=== PATIENT | female | born 1950 | race Caucasian/White ===

== ENCOUNTER 2024-07-18 10:37 | Inpatient (IN) ==
--- NOTE | 2024-06-08 15:35 | PAT Medication Instructions ---
Medication Instructions Date of Service June 08, 2024 Home Medications amoxicillin 500 mg capsule 500 mg PO UD celecoxib 200 mg capsule (Celebrex) 200 mg PO QAM cyanocobalamin (vitamin B-12) 1,000 mcg tablet 1,000 mcg PO QAM desvenlafaxine succinate 50 mg tablet,extended release 24 hr 50 mg PO QAM dulaglutide 1.5 mg/0.5 mL subcutaneous pen injector (Trulicity) 3 mg subcut WK gabapentin 300 mg capsule 300 mg PO HS hydrochlorothiazide 25 mg tablet 25 mg PO QAM lisinopril 10 mg tablet 10 mg PO QAM losartan 50 mg tablet 50 mg PO QAM metformin 500 mg tablet 1,000 mg PO BID metoprolol succinate 50 mg tablet,extended release 24 hr 50 mg PO QAM tramadol 50 mg tablet 50 mg PO Q6H PRN prn Continue as directed amoxicillin 500 mg capsule 500 mg PO UD ASK your surgeon for instructions celecoxib 200 mg capsule (Celebrex) 200 mg PO QAM STOP 7 days prior to surgery (if okay with prescriber) dulaglutide 1.5 mg/0.5 mL subcutaneous pen injector (Trulicity) 3 mg subcut WK DO NOT take the morning of surgery cyanocobalamin (vitamin B-12) 1,000 mcg tablet 1,000 mcg PO QAM hydrochlorothiazide 25 mg tablet 25 mg PO QAM lisinopril 10 mg tablet 10 mg PO QAM losartan 50 mg tablet 50 mg PO QAM metformin 500 mg tablet 1,000 mg PO BID Take morning of surgery With a small sip of water, OTHERWISE NOTHING TO EAT OR DRINK AFTER MIDNIGHT: desvenlafaxine succinate 50 mg tablet,extended release 24 hr 50 mg PO QAM metoprolol succinate 50 mg tablet,extended release 24 hr 50 mg PO QAM tramadol 50 mg tablet 50 mg PO Q6H PRN prn (if needed) Take evening before surgery gabapentin 300 mg capsule 300 mg PO HS metformin 500 mg tablet 1,000 mg PO BID tramadol 50 mg tablet 50 mg PO Q6H PRN prn (if needed) Other Notes If you have any questions please call us at [phone] or [phone] or [phone] or [phone]
--- NOTE | 2024-06-24 11:37 | Anesthesiology Consultation ---
Date of Service June 24, 2024 Assessment & Plan (1) Encounter for pre-operative examination: Plan - check BSG am DOS. - patient made aware that echocardiogram will need updated per anesthesia guidelines given mild aortic stenosis on 2019 echocardiogram-denies more recent echo. She plans to discuss this with PCP at 06/27/24 appointment. Optimization form to be faxed to PCP, Dr. Winston ENAMORADO. - upcoming surgeon ordered medical clearance. Of note, patient reports onset of coughing productive of yellow sputum, hoarse voice, mild sore throat, itchy ears 06/20/24; denies fever, chills, chest discomfort, shortness of breath, myalgias, dysphagia, jaw pain, fatigue or rash. She is wearing a mask, was advised if symptoms persist within 10 days of surgery to call PAT as would then need a COVID test. She denies wanting any testing today as plans to monitor symptoms and follow-up with PCP as scheduled. - dulaglutide instructions: Patient informed at PAT visit to stop 7 days prior to surgery- voiced understanding. Patient advised to check with prescriber to see if alternative diabetic management changes recommended while holding dulaglutide- if so, patient to call back to PAT to update chart and discuss if any further preop medication instructions needed. Chart Review Chart Review: Pending: Refer to Additional Notes / Consult section and Patient seen in Pre Admission Testing Teaching & Discussion Pre-Anesthesia Teaching/Discussion Notes: Instructed NPO after midnight before surgery, except medications with 15 cc of water. Medication instructions provided according to the PAT guidelines. History Surgery Operation Date: 07/18/24 07:45 Proposed Procedures p L4-S1 Decompression and Fusion, Possible L3-L4 Decompression and Fusion, with Spinal Cord Monitoring - Vincenzo Luna, Height/Weight Height: 4 ft 10.5 in Weight: 84.4 kg Allergies Allergy/AdvReac Type Severity Reaction Status Date / Time venom-honey bee Allergy Severe swelling Verified 06/08/24 09:43 Sulfa (Sulfonamide Allergy Intermediate Rash Verified 06/08/24 09:43 Antibiotics) Medications Home Medications Medication Instructions Recorded Confirmed Last Taken amoxicillin 500 mg capsule 500 mg PO UD 06/08/24 06/08/24 Unknown celecoxib 200 mg capsule (Celebrex) 200 mg PO QAM 06/08/24 06/08/24 Unknown cyanocobalamin (vitamin B-12) 1,000 mcg PO QAM 06/08/24 06/08/24 Unknown 1,000 mcg tablet desvenlafaxine succinate 50 mg 50 mg PO QAM 06/08/24 06/08/24 Unknown tablet,extended release 24 hr dulaglutide 1.5 mg/0.5 mL 3 mg subcut WK 06/08/24 06/08/24 Unknown subcutaneous pen injector (Trulicity) gabapentin 300 mg capsule 300 mg PO HS 06/08/24 06/08/24 Unknown hydrochlorothiazide 25 mg tablet 25 mg PO QAM 06/08/24 06/08/24 Unknown lisinopril 10 mg tablet 10 mg PO QAM 06/08/24 06/08/24 Unknown losartan 50 mg tablet 50 mg PO QAM 06/08/24 06/08/24 Unknown metformin 500 mg tablet 1,000 mg PO BID 06/08/24 06/08/24 Unknown metoprolol succinate 50 mg 50 mg PO QAM 06/08/24 06/08/24 Unknown tablet,extended release 24 hr tramadol 50 mg tablet 50 mg PO Q6H PRN prn 06/08/24 06/08/24 Unknown Past Medical History Medical History (Updated 06/24/24 @ 11:44 by Bev Puri PA-C) Aortic valve stenosis mild on 2018 echo Depression Diabetes mellitus, type 2 NIDDM History of kidney stones passed on Hyperlipidemia Hypertension controlled, stable per pt Lumbar radiculopathy Mitral regurgitation mild on 2018 echo Osteoarthritis Patient denies h/o stroke, seizures, heart attack, heart failure, blood clots/DVTs or blood transfusions. Exercise / Class Metabolic Activity II 4-5 Yardwork/Stairs/Walk up hill (denies chest discomfort or shortness of breath with one flight of stairs) Past Surgical History Surgical History (Updated 06/24/24 @ 11:45 by Bev Puri PA-C) History of toe surgery great toe, right History of total knee arthroplasty right History of umbilical hernia repair x 2 Past Anesthesia History No Hx of Anesthesia Complications and No Family Hx of Anesthesia Complications History of PONV No Hx of PONV and No Hx of Motion Sickness Social History Smoking Status: Never smoker Do You Dip or Chew Tobacco: No Hx Alcohol Use: No Hx Substance Use: No substance use type: does not use Review of Systems Snoring, denies witnessed apneas. Patient denies chest pain, shortness of breath, dyspnea on exertion, reflux, dizziness, presyncope, fever, chills, wheezing, or palpitations. Physical Exam Vital Signs Vitals BP 151/82 P 69 TEMP 98.4 SP02 96% on RA RESP 18 Physical Patient resting comfortably in chair in no acute distress, alert and oriented, responding appropriately throughout visit Full cervical extension range of motion without pain TMD < 3 finger breadths Mallampati Score 3 Dentition: recent dental implant placement, several crowns and several chipped teeth, denies loose teeth, caps, or bridges Lungs: normal respiratory effort. Good air movement, clear throughout to auscultation, no adventitious breath sounds Cardiac: regular rate and rhythm, 2/6 systolic murmur noted, no gallops or rubs Carotid arteries: negative bruit bilat Lab Results Anesthesia Preop Results Results Anesthesia Widget: WBC 9.87 K/ul (4.8-10.8) 06/24/24 Hgb 13.1 g/dl (12.0-16.0) 06/24/24 Hct 37.9 % (37.0-47.0) 06/24/24 Plt 220 K/uL (130-400) 06/24/24 Na 139 mmol/L (136-145) 06/24/24 K 3.7 mmol/L (3.5-5.1) 06/24/24 Cl 104 mmol/L (98-107) 06/24/24 CO2 30 mmol/L (21-32) 06/24/24 BUN 14 mg/dl (6-23) 06/24/24 Creat 0.60 mg/dl (0.6-1.2) 06/24/24 Glucose Level 134 mg/dl (70-99(Fasting)) H 06/24/24 PT 10.9 Seconds (9.0-12.0) 06/24/24 PTT 26 Seconds (21-31) 06/24/24 INR 1.0 (0.9-1.1) 06/24/24 HA1c 7.2 % (4.5-5.6) H 06/24/24 Urine Color Yellow 06/24/24 Urine Appearance Clear (Clear) 06/24/24 Urine pH 5.5 (4.5-7.5) 06/24/24 Urine Specific [place] 1.022 (1.000-1.030) 06/24/24 Urine Protein Negative (Negative) 06/24/24 Urine Glucose (UA) Negative (Negative) 06/24/24 Urine Ketones Negative (Negative) 06/24/24 Urine Blood Negative (Negative) 06/24/24 Urine Nitrite Negative (Negative) 06/24/24 Urine Bilirubin Negative (Negative) 06/24/24 Urine Urobilinogen Negative (Negative) 06/24/24 Urine Leukocyte Esterase Negative (Negative) 06/24/24 Blood Type A Positive 06/24/24 Antibody Screen NEGATIVE 06/24/24 Testing Electrocardiogram Date: 06/24/24 NSR, rate 74 bpm Chest X-Ray Date: 06/24/24 No evidence of acute cardiopulmonary disease, communicable disease or tuberculosis. Echocardiogram Date: 04/07/19 EF 60-64% Normal LV wall motion Mildly calcified aortic valve, mild aortic valve stenosis (ALMA 1.1 cm2, mean PG 9 mmHg) Mild mitral regurgitation No evidence of pulmonary hypertension Grade I diastolic dysfunction
[2024-07-18] MEDS ORDERED: DEXAMETHASONE SOD INJ 4 MG/ML VIAL ONE (11:00)
[2024-07-18] MEDS ORDERED: ROCURONIUM BROMIDE 10 MG/ML 5 ML VIAL IV ONE (11:00)
[2024-07-18] MEDS ORDERED: GLYCOPYRROLATE 0.2 MG/ML VIAL ONE (11:00)
[2024-07-18] MEDS ORDERED: PROPOFOL IV EMULSION 10 MG/ML 20 ML VIAL IV ONE (11:00)
[2024-07-18] MEDS ORDERED: MIDAZOLAM HCL 1 MG/ML 2ML VIAL ONE (11:00)
[2024-07-18] MEDS ORDERED: LIDOCAINE 2% 2 ML VIAL/AMP(20MG/ML) INFIL ONE (11:00)
[2024-07-18] MEDS ORDERED: ONDANSETRON INJ 2 MG/ML 2 ML VIAL ONE (11:00)
[2024-07-18] MEDS ORDERED: fentaNYL citrate PF 100 MCG/2 ML VIAL ONE ×2 (11:01→13:15)
[2024-07-18] MEDS ORDERED: SUGAMMADEX SODIUM 200 MG/2 ML VIAL IV ONE (11:02)
[2024-07-18] MEDS: ACETAMINOPHEN 500 MG TAB PO SCH (11:27)
[2024-07-18] MEDS: GABAPENTIN 300 MG CAP PO SCH ×2 (11:28→20:11)
[2024-07-18] MEDS: LR 15ML/HR IV SCH (11:28)
[2024-07-18] MEDS: CeleBREX 200 MG CAP PO SCH (11:28)
[2024-07-18] MEDS: LR 60ML/HR IV SCH (11:28)
--- NOTE | 2024-07-18 12:38 | History & Physical Bridge Note ---
Date of Service July 18, 2024 History & Physical Bridge Note I have examined the patient, reviewed the History & Physical and in the interval since the performance of the History & Physical I have noted the following changes of clinical significance: no changes noted
--- NOTE | 2024-07-18 12:39 | History & Physical Report ---
Date of Service July 18, 2024 Assessment & Plan (1) Lumbosacral spondylosis with radiculopathy: Plan: L4-S1 decompression and fusion possible L3-4 decompression and fusion History of Present Illness Chief Complaint: Back and bilateral leg pain Primary Care Provider: Winston Avlarado MD This is a 73-year-old female who presents for chronic persistent back and leg pain after failing course of nonoperative care is here for surgical invention. Allergies Allergy/AdvReac Type Severity Reaction Status Date / Time venom-honey bee Allergy Severe swelling Verified 07/18/24 11:09 Sulfa (Sulfonamide Allergy Intermediate Rash Verified 07/18/24 11:09 Antibiotics) Home Medications Medication Instructions Recorded Confirmed Type amoxicillin 500 mg capsule 500 mg PO UD 06/08/24 07/18/24 History celecoxib 200 mg capsule (Celebrex) 200 mg PO QAM 06/08/24 07/18/24 History cyanocobalamin (vitamin B-12) 1,000 mcg PO QAM 06/08/24 07/18/24 History 1,000 mcg tablet desvenlafaxine succinate 50 mg 50 mg PO QAM 06/08/24 07/18/24 History tablet,extended release 24 hr dulaglutide 1.5 mg/0.5 mL 3 mg subcut WK 06/08/24 07/18/24 History subcutaneous pen injector (Trulicity) gabapentin 300 mg capsule 300 mg PO HS 06/08/24 07/18/24 History hydrochlorothiazide 25 mg tablet 25 mg PO QAM 06/08/24 07/18/24 History lisinopril 10 mg tablet 10 mg PO QAM 06/08/24 07/18/24 History losartan 50 mg tablet 50 mg PO QAM 06/08/24 07/18/24 History metformin 500 mg tablet 1,000 mg PO BID 06/08/24 07/18/24 History metoprolol succinate 50 mg 50 mg PO QAM 06/08/24 07/18/24 History tablet,extended release 24 hr tramadol 50 mg tablet 50 mg PO Q6H PRN prn 06/08/24 07/18/24 History Past Med/Surg History Problem List (Updated 07/18/24 @ 12:38 by Vincenzo Luna DO) Lumbosacral spondylosis with radiculopathy Encounter for pre-operative examination Medical History (Updated 07/18/24 @ 12:38 by Vincenzo Luna, DO) Mitral regurgitation mild on 2019 echo Aortic valve stenosis mild on 2019 echo Lumbar radiculopathy Osteoarthritis History of kidney stones passed on own-2013 Diabetes mellitus, type 2 NIDDM Depression Hyperlipidemia Hypertension controlled, stable per pt Surgical History History of toe surgery great toe, right History of total knee arthroplasty right History of umbilical hernia repair x 2 Social History Smoking Status: Never smoker Second Hand Exposure: No; Do You Dip or Chew Tobacco: No; Tobacco Cessation Education Requested by Patient: No Hx Alcohol Use: No Hx Substance Use: No Preferred Language: Serbian Director Of Managed Care Required: No Beliefs That Will Affect Care: None Current Living Situation: Spouse Other Information That Helps Us Care for You: No Feels Safe at Home: Yes Safety Concerns: Feels Safe At This Time Assistive Devices: Cane and Glasses Physical Exam Physical Exam: Patient is alert and oriented Heart regular in rhythm Lungs clear Results & Data Results & Data Vital Signs (Past 12 Hours) Vital Signs Temp Pulse Resp BP Pulse Ox O2 Del Method 07/18/24 11:13 36.6 C 71 20 167/88 H 98 Room Air
[2024-07-18] MEDS: ceFAZolin 2000MG 2,000 MG/15 ML SYR IV SCH ×2 (12:56→20:12)
[2024-07-18] MEDS: BUPIVACAINE/EPINEPHRINE 0.5% MPF 1:200,000 30 ML VIAL ONE (13:21)
[2024-07-18] MEDS: ceFAZolin 330 MG/ML 1 GM VIAL ONE (13:21)
--- OUTSIDE RECORDS SUMMARY | 2024-07-18 14:12 | External Medical Summary | Summary of Care ---
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 EKG and urine collected at [facility]. Encounter Details Date Type Department [facility] Description 06/27/2024 10:20 AM EST Office Visit [address] [phone] Lashanda Last PA-C [address] [place] [phone] Pre-op examination*; Lumbar back pain; Acute maxillary sinusitis, recurrence not specified Allergies Active Allergy Reactions Criticality Noted Date Comments Bee Venom Other (Please comment) 01/10/2014 Localized reaction-large edematous site with one week to recover Sulfa Antibiotics Rash 01/27/2001 documented as of this encounter (statuses as of 07/01/2024) Medications hydrOXYzine HCl 25 MG tabletIndication s:Anxiety Take 1 Tab by mouth every 6 hours as needed for Anxiety. 40 Tab 6 0 Active Additional Information Patient not taking.Reported on 06/27/2024 Ventolin HFA 108 (90 Base) MCG/ACT Inhalation Aerosol SolutionIndicati ons:Productive cough Inhale by mouth 2 Puffs every 4 hours as needed for Cough, Shortness of Breath or Wheezing. 18 g 5 2 Active Additional Information Patient not taking.Reported on 12/25/2023 Spacer/Aero-Hold ing Chambers Device Use with inhaler. 1 Each 2 Active Additional Information Patient not taking.Reported on 06/27/2024 SUMAtriptan Succinate 6 MG/0.5ML Subcutaneous Solution Auto-injector (Imitrex)Indicat ions:Migraine with aura and without status migrainosus, not intractable GIVE ONE INJECTION AT ONSET OF MIGRAINE. MAY REPEAT IN TWO HOURS INFECTION NEEDED, MAX OF TWO INJECTIONS PER DAY] 0.5 mL 5 3 Active Additional Information Patient not taking.Reported on 06/27/2024 metFORMIN HCl 500 MG Oral Tablet (Glucophage)Deisi cations:Type 2 diabetes mellitus with hyperglycemia, without long-term current use of insulin (HCC) Take 2 Tablets by mouth 2 times a day with morning and evening meals. 360 Tablet 3 3 Active valACYclovir HCl 1 GM Oral Tablet (Valtrex)Indicat ions:H/O cold sores Take 2 Tablets by mouth in the morning and 2 Tablets before bedtime. for cold sores. 4 Tablet 11 3 Active Gabapentin 300 MG Oral Capsule (Neurontin)Indic ations:Meralgia paraesthetica, left Take 1 Capsule by mouth in the morning and 1 Capsule before bedtime. 60 Capsule 5 09/23/2023 11:59 AM EDT 4 Active Trulicity 3 MG/0.5ML Subcutaneous Solution Pen-injector (Dulaglutide) Inject 3 mg under the skin once a week. 6 mL 3 4 Active Nystatin 387305 UNIT/GM External CreamIndications :Intertrigo Apply topically to affected area 2 times a day. To affacted area for two weeks. 30 g 2 10/20/2023 11:05 AM EDT 4 Active Vitamin B-12 1000 MCG Oral Tablet (Cyanocobalamin) Indications:Type 2 diabetes mellitus without complication, without long-term current use of insulin ([facility]) TAKE 1 TABLET BY MOUTH ONCE DAILY IN THE MORNING 100 Tablet 3 4 Active Metoprolol Succinate ER 50 MG Oral Tablet Extended Release 24 Hour (toPROL XL)Indications:E levated blood pressure, situational TAKE ONE TABLET BY MOUTH ONCE DAILY 90 Tablet 3 4 Active hydroCHLOROthiaz valentina 25 MG Oral Tablet (Hydrodiuril)Ind ications:HTN, goal below 140/90 TAKE 1 TABLET BY MOUTH ONCE DAILY FOR HIGH BLOOD PRESSURE AND FLUID 90 Tablet 3 4 Active Losartan Potassium 50 MG Oral Tablet (Cozaar)Indicati ons:HTN, goal below 140/90 TAKE 1 TABLET BY MOUTH ONCE DAILY IN THE MORNING 90 Tablet 3 4 Active Desvenlafaxine Succinate ER 50 MG Oral Tablet Extended Release 24 Hour (Pristiq)Indicat ions:Depression with anxiety TAKE ONE TABLET BY MOUTH ONCE DAILY 90 Tablet 3 4 Active Atorvastatin Calcium 20 MG Oral Tablet (Lipitor) TAKE ONE TABLET BY MOUTH ONCE DAILY 90 Tablet 1 4 Active Celecoxib 200 MG Oral Capsule (CeleBREX)Indica tions:Meralgia paraesthetica, left TAKE 1 CAPSULE BY MOUTH ONCE DAILY IN THE MORNING FOR PAIN 30 Capsule 3 4 Active Cyclobenzaprine HCl 5 MG Oral Tablet (Flexeril) Take 1 Tablet by mouth in the morning and 1 Tablet at noon and 1 Tablet before bedtime. 30 Tablet 4 Active FreeStyle Briseyda 3 Plus SensorIndication s:Type 2 diabetes mellitus with hyperglycemia, without long-term current use of insulin ([facility]) Use to monitor blood sugar daily DX E11.9 6 Each 3 4 Active Amoxicillin-Pot Clavulanate 875-125 MG Oral Tablet (Augmentin)Indic ations:Acute maxillary sinusitis, recurrence not specified Take 1 Tablet by mouth in the morning and 1 Tablet before bedtime. Do all this for 10 days. 20 Tablet 4 07/07/19 25 Active documented as of this encounter (statuses as of 07/01/2024) Active Problems Problem Noted Date Diagnosed Date H/O cold sores 04/21/2023 Mild aortic stenosis 02/11/2023 Female stress incontinence 08/13/2022 Drug-induced parkinsonism 10/03/2021 Aortic valve sclerosis 08/21/2021 Type 2 diabetes mellitus wit h hyperglycemia, without long-term current use of insulin 02/14/2021 Dyslipidemia, goal LDL below 70 02/14/2021 Urge incontinence of urine 02/14/2021 Neurofibromatosis 08/20/2020 HTN, goal below 140/90 08/18/2019 GENERAL OSTEOARTHROSIS 09/30/2002 CLASSICAL MIGRAINE WITHOU MENTION OF INTRACTABLE MIGRAINE 01/27/2001 documented as of this encounter (statuses as of 07/01/2024) Resolved Problems Problem Noted Date Diagnosed Date Resolved Date Parkinson's disease 08/13/2022 08/13/19 Ulcer of right second toe, l imited to breakdown of skin 01/20/2022 08/13/2022 Morbid obesity due to excess calories 08/20/2020 08/13/2022 Encounter for examination fo r normal comparison and control in clinical research program 07/10/2017 01/30/2020 Overview (10/15/2020): DO NOT DELETE [facility] DETECT Study: Project # [id number], Network Analyst: Montrell Jones, PhD. SUMMARY: Goal: Establish test characteristics (sensitivity, specificity, PPV, NPV) of a circulating tumor DNA (ctDNA)-based test for cancer. Hypothesis: Circulating tumor DNA (ctDNA) and elevated protein biomarkers (together, the marker panel) can be detected in asymptomatic individuals with early cancer. Specific Aim 1: Determine the prevalence of a positive marker panel test in a prospective clinical cohort of 10,000 asymptomatic women ages 65 to 75 years. Specific Aim 2: Determine the sensitivity, specificity, positive predictive value (PPV) and negative predictive value (NPV) of a marker panel test to identify histologically proven cancers that develop within 5-years of the marker panel evaluation. CONTACTS: During normal business hours, contact study staff at ; after hours Network Analyst via the [facility] soda fountain operator . Please contact study team before resolving/deleting from patients problem list. Study phone number: [phone]. Diagnosis changed due to Research Module. Go to Snapshot for study details. Encounter for examination fo r normal comparison and control in clinical research program 07/10/2017 02/27/2022 Overview (10/15/2020): DO NOT DELETE - Vargasus Rojas APRIL Study: Project # [id number], Network Analyst: Enrico Laird, MS, MPH. SUMMARY: Goal: Establish test characteristics (sensitivity, specificity, PPV, NPV) of a circulating tumor DNA (ctDNA)-based test for cancer. - Hypothesis: Circulating tumor DNA (ctDNA) and elevated protein biomarkers (together, the marker panel) can be detected in asymptomatic individuals with early cancer. - Specific Aim 1: Determine the prevalence of a positive marker panel test in a prospective clinical cohort of 10,000 asymptomatic women ages 65 to 75 years. - Specific Aim 2: Determine the sensitivity, specificity, positive predictive value (PPV) and negative predictive value (NPV) of a marker panel test to identify histologically proven cancers that develop within 5-years of the marker panel evaluation. - CONTACTS: During normal business hours, contact study staff at ; after hours Network Analyst via the [facility] soda fountain operator . - Please contact study team before resolving/deleting from patients problem list. Study phone number: [phone]. Diagnosis changed due to Research Module. Go to Snapshot for study details. Body mass index (BMI) of 40. 0 to 44.9 in adult 03/30/2017 09/14/2018 Overview: Per Obesity protocol #1 ADVANCE DIRECTIVE INFORMATION 04/02/2005 04/21/2023 Overview (04/02/2005): No, Advance Directive brochure given to patient at prior appointment. OTHER NONSPECIFIC FINDINGS O N EXAMINATION OF BLOOD 09/30/2002 04/30/2017 PREMENSTRUAL TENSION 01/27/2001 007 Gynecological examination 01/27/2001 Menopause 01/27/2001 09/14/2018 Overview (06/28/2007): Lmp 2004 documented as of this encounter (statuses as of 07/01/2024) Immunizations Name Administration Dates Next Due COVID-19 mRNA, LNP-s, No Pre serve, 2-Dose Series (Moderna) 10/01/2020,08/31/2020 Pneumococcal Conjugate Vacc, 13 Valent (Prevnar) 03/31/2019 Pneumococcal Polysaccharide PPV23 (Pneumovax) 08/20/2020 Seasonal Influenza Vac., MDV , IM, 0.5 mL (Fluzone) 03/28/2010,05/05/2007 Seasonal Influenza, PF, 6 M & above, IM , (FluLaval or Fluzone) 03/31/2019 Seasonal Influenza, Quadriva lent Hd (Fluzone Hd) 04/21/2023,08/21/2021 Seasonal Influenza, Trivalen t, Adjuvanted, 65+ YRS, PF, (Fluad) 04/12/2020 TDAP (age 10 and older)(Boostrix) 04/12/2020 TDAP, Age 7 and older, IM (Adacel) 11/08/2010(De ferred: Patient Refused) Zoster Vaccine Recombinant (Shingrix) 08/01/2020 ,04/12/2020 documented as of this encounter Social History Tobacco Use Types Packs/Day Years Used Date Smoking Tobacco: Never Smokeless Tobacco: Never Alcohol Use Standard Drinks/Week Comments Not Currently 0 (1 standard drink = 0.6 oz pur e alcohol) rarely PHQ-2 Answer Date Recorded PHQ Adult Total Score 0 02/12/2024 Hunger Vital Sign Answer Date Recorded Worried About Running Out of Food in the Last Ye ar Never true 12/12/2019 Ran Out of Food in the Last Year Never true 12/12/2019 Comments No Sex and Gender Information Value Date Recorded Sex Assigned at Female 09/16/2018 3:31 PM EDT Legal Sex Female 5:14 AM EST Gender Identity Female 09/16/2018 3:31 PM EDT Sexual Orientation Straight 09/16/2018 3: 31 PM EDT Occupation Industry Job Start Date Job End Date self employed Not on file Not on file Not on file documented as of this encounter Last Filed Vital Signs Vital Sign Reading Time Taken Comments Blood Pressure 138/78 06/27/2024 10:45 AM EST Pulse 74 06/27/2024 10:19 AM EST Temperature 36.8 C (98.2 F) 06/27/2024 10:[address] Respiratory Rate - - Oxygen Saturation 97% 06/27/2024 10:19 AM EST Inhaled Oxygen Concentration - - Weight 83.3 kg (183 lb 9.6 oz) 06/27/2024 10:19 AM EST Height - - Body Mass Index 37.08 08/29/2023 5:48 PM EST documented in this encounter Plan of Treatment Upcoming Encounters Date Type Department [facility] Team ([facility] Contact [facility] Description 07/06/2024 9:30 AM EST Office Visit Pharmacy [address] [phone] Pharmacist2, [facility] [address] [address] 08/01/2024 8:10 AM EST Laboratory [facility], [address] [phone] Have, Lab [address] [address] 08/15/2024 10:20 AM EST Office Visit Family Practice [address] [phone] Winston Messer MD [address] [place] [phone] Scheduled Procedures Name Priority Associated Diagnoses Date/Ti me COLONOSCOPY FLEXIBLE PROXIMAL DIAGNOSTIC Recall History of colon polyps Health Maintenance Due Date Last Done Comments Cologuard 09/03/1996 Fecal Occult Blood Test 09/03/1996 Sigmoidoscopy 09/03/1996 Adult Wellness Visit 09/03/2017 COVID-19 Vaccine ( season) 2024 10/01/2020, 08/31/2020 Influenza Vaccine (FLU shot) (#1) 2024 04/21/2023, 08/21/2021, 04/12/2020, Additional history exists DXA Scan 05/07/2024 05/07/2017, 04/07/2001 Albumin/Creatinine Ratio 08/14/2024 024, 07/17/2022, 08/21/2021 Mammogram 10/15/2024 10/16/2023, 04/1 01/2023, 10/14/2022, Additional history exists HbA1c 12/23/2024 06/24/2024, 08/0 01/2024, 10/20/2023, Additional history exists Depression Screening 02/11/2025 02/12/2024 Diabetic Foot Exam 02/11/2025 02/12/2024, 0 02/11/2023, 01/20/2022, Additional history exists Diabetic Eye Exam 05/16/2025 05/16/2024, , 05/14/2023, Additional history exists GFR 06/24/2025 06/24/2024, 08/0 01/2024, 08/14/2023, Additional history exists Colonoscopy 10/02/2027 10/01/2022, 04/0 10/2022, 03/16/2019, Additional history exists Colorectal Cancer Screening 10/02/2027 Lipid Panel 02/03/2029 02/04/2024, 08/0 02/2023, 07/17/2022, Additional history exists DTap/Tdap Vaccines (2 - Td or Tdap) 04/12/2030 04/12/2020, 02/16/1997 Zoster Vaccines Completed 08/01/2020, 04/12/2020 Pneumococcal Vaccine: 50+ Years Completed 08/20/2020, 03/31/2019 RETIRED - COLONOSCOPY-EVERY 5 YRS AGES 18-100 Discontinued 10/01/2022, 10/01/2022, 03/16/2019, Additional history exists HPV (Gardasil) Vaccine Aged Out No lo nger eligible based on patient's age to complete this topic Hepatitis B Vaccine Aged Out No longe r eligible based on patient's age to complete this topic MENINGOCOCCAL (MENACTRA/MENVEO) Aged Out No longer eligible based on patient's age to complete this topic documented as of this encounter Medical Devices Implanted Type Area Community Organization Worker Device Identifier Shelf Expiration Date Model / Serial / Lot Ventralex [facility] [place] With Strap Implanted:Qty: 1 on 01/25/2014 at OR [facility] N/A: Abdomen 06/28/2015 [id number] / / [id number] documented as of this encounter Visit Diagnoses Diagnosis Pre-op examination- Primary Preoperative examination, unspecified Lumbar back pain Lumbago Acute maxillary sinusitis, recurrence not specified documented in this encounter Advance Directives * Full Code (Latest Code Status on File) Date Activated Date Inactivated Comments 03/18/2021 8:36 AM 03/18/2021 1:48 PM This order r eflects the patients wishes and were consensually agreed upon. Question Answer Comments Discussion of Advance Directives occurred with: Not Discussed Does the patient have a Living Will? No Does the patient have Health Care Power of Attor aubrey? No * Full Code Date Activated Date Inactivated Comments 03/18/2021 8:29 AM 03/18/2021 8:36 AM This order r eflects the patients wishes and were consensually agreed upon. Question Answer Comments Discussion of Advance Directives occurred with: Not Discussed Does the patient have a Living Will? No Does the patient have Health Care Power of Attor aubrey? No * Full Code Date Activated Date Inactivated Comments 10/10/2010 6:42 AM 10/10/2010 4:18 PM This order r eflects the patients wishes and were consensually agreed upon. Care Teams Law Firm Consultant Relationship Specialty Start Date End Date Winston Messer MD [address] [place] [address] PCP - General Family Medicine 12/09/20 documented as of this encounter
--- OUTSIDE RECORDS SUMMARY | 2024-07-18 14:12 | External Medical Summary | Summary of Care ---
Author Name Unknown Organization [facility] Address [address] [place] [address] Phone [phone] Care Team Providers Care Manuscripts Curator Name Role Phone Winston Messer MD Primary Care P rovider Encounter Details Date Type Department Care Team ([facility] st Contact Info) Description 06/27/2024 Telephone Family Practice [address] [phone] Winston Messer MD [address] [place] [phone] Allergies Active Allergy Reactions Criticality Noted Date Comments Bee Venom Other (Please comment) 01/10/2014 Localized reaction-large edematous site with one week to recover Sulfa Antibiotics Rash 01/27/2001 documented as of this encounter (statuses as of 07/06/2024) Medications hydrOXYzine HCl 25 MG tabletIndication s:Anxiety [...] week. 6 mL 3 4 Active Nystatin 135179 UNIT/GM External CreamIndications :Intertrigo Apply topically to affected area 2 times a day. To affacted area for two weeks. 30 g 2 10/20/2023 11:05 AM EDT 4 Active Vitamin B-12 1000 MCG Oral Tablet (Cyanocobalamin) Indications:Type 2 diabetes mellitus without complication, without long-term current use of insulin (HCC) TAKE 1 TABLET BY MOUTH ONCE DAILY [...] without long-term current use of insulin (HCC) Use to monitor blood sugar daily DX E11.9 6 Each 3 4 Active Amoxicillin-Pot Clavulanate 875-125 MG Oral Tablet (Augmentin)Indic ations:Acute maxillary sinusitis, recurrence not specified Take 1 Tablet by mouth in the morning and 1 Tablet before bedtime. Do all this for 10 days. 20 Tablet 4 07/07/19 25 Active documented as of this encounter (statuses as of 07/06/2024) Active Problems Problem Noted Date Diagnosed Date [...] as of this encounter (statuses as of 07/06/2024) Resolved Problems Problem Noted Date Diagnosed Date Resolved Date Parkinson's disease 08/13/2022 08/13/19 Ulcer of right second toe, l imited to breakdown of skin 01/20/2022 08/13/2022 Morbid obesity due to excess calories 08/20/2020 08/13/2022 Encounter for examination fo r normal comparison and control in clinical research program 07/10/2017 01/30/2020 Overview (10/15/2020): DO NOT DELETE [facility] DETECT Study: Project # [id number], Vector Control Assistant: Montrell Jones, PhD. SUMMARY: Goal: Establish test [...] contact study staff at ; after hours Vector Control Assistant via the [facility] whizzer operator . Please contact study team before resolving/deleting from patients problem list. Study phone number: [phone]. Diagnosis changed due to Research Module. Go to Snapshot for study details. Encounter for examination fo r normal comparison and control in clinical research program 07/10/2017 02/27/2022 Overview (10/15/2020): DO NOT DELETE - [facility] DETECT Study: Project # [id number], Vector Control Assistant: Enrico Laird, MS, MPH. SUMMARY: Goal: Establish [...] contact study staff at ; after hours Vector Control Assistant via the [facility] whizzer operator . - Please contact study team before resolving/deleting from patients problem list. Study phone number: [phone]. Diagnosis changed due to Research Module. Go [...] as of this encounter (statuses as of 07/06/2024) Immunizations Name Administration Dates Next Due COVID-19 mRNA, LNP-s, No Pre serve, 2-Dose Series (Moderna) 10/01/2020,08/31/2020 Pneumococcal Conjugate Vacc, 13 Valent (Prevnar) 03/31/2019 Pneumococcal Polysaccharide PPV23 (Pneumovax) 08/20/2020 Seasonal Influenza Vac., MDV , IM, 0.5 mL (Fluzone) 03/28/2010,05/05/2007,04/30/2005 Seasonal Influenza, PF, 6 M & above, IM , (FluLaval or Fluzone) 03/31/2019 Seasonal Influenza, Quadriva lent Hd (Fluzone Hd) 04/21/2023,08/21/2021 Seasonal Influenza, Trivalen t, Adjuvanted, 65+ YRS, PF, (Fluad) 04/12/2020 TD - Tetanus/Diptheria (ADULT) 02/16/1997 TDAP (age 10 and older)(Boostrix) 04/12/2020 TDAP, [...] on file documented as of this encounter Miscellaneous Notes * Telephone Encounter - Catherine Kunz, FREDRICK - 06/27/2024 11:19 AM EST 07/06/24 Rec results from testing for upcoming surgery from [facility]Dr. Vincenzo Luna as requested. Sent to [facility] to be added to pts chart. Placed in Lashanda Last's "In Box" today for review. 06/27/24 Successfully faxed HARPRE[facility] to [facility] Vincenzo Luna for results from testing for upcoming surgery per provider's request (Lashanda Last). Sent to [facility]. documented in this encounter Plan of Treatment Upcoming Encounters Date Type Department Care Team ([facility] st Contact Info) Description 08/01/2024 8:10 AM EST Laboratory Laboratory Patient Service [address] [phone] [facility] [address] [place] [address] 08/15/2024 10:20 AM EST Office Visit [address] [phone] Winston Messer MD [address] [place] [address] Scheduled Procedures Name Priority Associated Diagnoses Date/Ti [...] 08/14/2024 024, 07/17/2022, 08/21/2021 Mammogram 10/15/2024 10/16/2023, 0401/2023, 10/14/2022, Additional history exists HbA1c 12/23/2024 06/24/2024, [...] this encounter Medical Devices Implanted Type Area Seasonal Tax Preparer Device Identifier Shelf Expiration Date Model / Serial / Lot Ventralex [facility] [place] With Strap Implanted:Qty: 1 on 01/25/2014 at OR [facility] N/A: Abdomen 06/28/2015 [id number] / / [id number] documented as of this encounter Advance Directives * Full Code [...] and were consensually agreed upon. Care Teams Manuscripts Curator Relationship Specialty Start Date End Date Winston Messer MD [address] [place] [phone] PCP - General Family Medicine 12/09/20 documented as of this encounter
--- OUTSIDE RECORDS SUMMARY | 2024-07-18 14:12 | External Medical Summary | Summary of Care ---
Author Name Unknown Organization [facility] Address [address] [place] [address] Phone [phone] Care Team Providers Care Log Cooker Name Role Phone Winston Messer MD Primary Care P rovider Reason for Visit * Reason Onset Date Comments Order Request 07/05/2024 Encounter Details Date Type Department Care Team ([facility] st Contact Info) Description 07/05/2024 Telephone [facility] [address] [place] [address] Lashanda Last PA-C [address] [place] [phone] Order Request Allergies Active Allergy Reactions Criticality Noted Date Comments Bee Venom Other (Please comment) 01/10/2014 Localized reaction-large edematous site with one week to recover Sulfa Antibiotics Rash 01/27/2001 documented as of this encounter (statuses as of 07/05/2024) Medications hydrOXYzine HCl 25 MG tabletIndication s:Anxiety [...] week. 6 mL 3 4 Active Nystatin 061265 UNIT/GM External CreamIndications :Intertrigo Apply topically to [...] as of this encounter (statuses as of 07/05/2024) Active Problems Problem Noted Date Diagnosed Date [...] as of this encounter (statuses as of 07/05/2024) Resolved Problems Problem Noted Date Diagnosed Date Resolved Date Parkinson's disease 08/13/2022 08/13/19 Ulcer of right second toe, l imited to breakdown of skin 01/20/2022 08/13/2022 Morbid obesity due to excess calories 08/20/2020 08/13/2022 Encounter for examination fo r normal comparison and control in clinical research program 07/10/2017 01/30/2020 Overview (10/15/2020): DO NOT DELETE [employer] DETECT Study: Project # [id number], Trailer Steerer: Montrell Jones, PhD. SUMMARY: Goal: Establish test [...] contact study staff at ; after hours Trailer Steerer via the [facility] washer operator . Please contact study team before resolving/deleting from patients problem list. Study phone number: [phone]. Diagnosis changed due to Research Module. Go to Snapshot for study details. Encounter for examination fo r normal comparison and control in clinical research program 07/10/2017 02/27/2022 Overview (10/15/2020): DO NOT DELETE - [employer] DETECT Study: Project # [id number], Trailer Steerer: Enrico Laird, MS, MPH. SUMMARY: Goal: Establish [...] contact study staff at ; after hours Trailer Steerer via the [facility] washer operator . - Please contact study team before resolving/deleting from patients problem list. Study phone number: [phone]. Diagnosis changed due to Research Module. Go [...] as of this encounter (statuses as of 07/05/2024) Immunizations Name Administration Dates Next Due COVID-19 [...] Miscellaneous Notes * Telephone Encounter - Catherine Kunz OSA - 07/05/2024 1:23 PM EST 07/05/24 Rec paperwork from [facility] requesting Medical Evaluation/Consult and and updated Echocardiogram. Paperwork placed in provider's "In box" today. Pre-op appt paperwork attached. * Telephone Encounter - Korina Esposito LPN - 07/05/2024 8:52 AM EST Beatriz from [place] [facility] is calling. States that the pt needs an updated echocardiogram prior to her procedure on 07/18/24. A note from Dr. Luna was faxed to PCP's office twice in this regard. Please advise. documented in this encounter Plan of Treatment Upcoming Encounters Date Type Department Care Team ([facility] Contact Info) Description 07/06/2024 9:30 AM EST Office Visit Pharmacy [address] [phone] Pharmacist2, [facility] [address] [address] 08/01/2024 8:10 AM EST [facility], [address] [phone] [place], [facility] [address] [place] [address] 08/15/2024 10:20 AM EST Office Visit Family [address] [phone] Winston Messer MD [address] [place] [address] [phone] Scheduled Procedures Name Priority Associated Diagnoses Date/Ti [...] this encounter Medical Devices Implanted Type Area Laundry Operator Wash Room Device Identifier Shelf Expiration Date Model / Serial / Lot Ventralex [place] With Strap Implanted:Qty: 1 on 01/25/2014 at OR [facility] N/A: Abdomen 06/28/2015 [id number] / / [id number] documented as of this encounter Advance Directives [...] and were consensually agreed upon. Care Teams Log Cooker Relationship Specialty Start Date End Date Winston Messer MD [address] [place] [address] PCP - General Family Medicine 12/09/20 documented as of this encounter
--- OUTSIDE RECORDS SUMMARY | 2024-07-18 14:12 | External Medical Summary | Summary of Care ---
Author Name Unknown Organization [facility] Address [address] [place] [address] Phone [phone] Care Team Providers Care Polygraph Examiner Name Role Phone Winston Messer MD Primary Care [facility] Reason for Referral * Precert (Diagnostic Medical) (Within 24 hrs (call dept; emergent)) - Authorized Specialty Diagnoses / Procedures Referred By Contac t Referred To Contact Cardiac Studies Diagnoses Pre-op examination Mild aortic stenosis Procedures ECHO, COMPLETE (2D), TRANS-THORACIC Sameera Van PA-C [address] [place] [phone] Phone: tel: fax: Referral ID Status Reason Start Date Expiration Date V isits Requested Visits Authorized [id number] Authorized Precert 07/05/2024 999 999 Reason for Visit * Reason Onset Date Comments Order Request 07/05/2024 Encounter Details Date Type Department Care Team ([facility] st Contact Info) Description 07/05/2024 Telephone Family Practice [facility] [address] [place] [address] Sameera Van PA-C [address] [place] [phone] Order Request Allergies Active Allergy Reactions [...] week. 6 mL 3 4 Active Nystatin 702352 UNIT/GM External CreamIndications :Intertrigo Apply topically to [...] 07/10/2017 01/30/2020 Overview (10/15/2020): DO NOT DELETE [facility] DETECT Study: Project # [id number], Bookmobile Librarian: Montrell Jones, PhD. SUMMARY: Goal: Establish test [...] contact study staff at ; after hours [employer] Librarian via the [facility] tunnel kiln operator . Please contact study team before resolving/deleting from patients problem list. Study phone number: [phone]. Diagnosis changed due to Research Module. Go to Snapshot for study details. Encounter for examination fo r normal comparison and control in clinical research program 07/10/2017 02/27/2022 Overview (10/15/2020): DO NOT DELETE - [facility] Study: Project # [id number], [employer] Librarian: Enrico Laird, MS, MPH. SUMMARY: Goal: Establish [...] contact study staff at ; after hours [employer] Librarian via the [facility] tunnel kiln operator . - Please contact study team before resolving/deleting from patients problem list. Study phone number: [phone]. Diagnosis changed due to Research Module. Go to [employer] for study details. Body mass index (BMI) [...] Age 7 and older, IM (Adacel) 11/08/2010(De ayed: Patient Refused) Zoster Vaccine Recombinant (Shingrix) 08/01/2020 [...] as of this encounter Miscellaneous Notes * Addendum Note - Sameera Van PA-C - 07/05/2024 2:37 PM ESTAddended by: SAMEERA VAN on: 07/05/2024 02:37 PM Modules accepted: Orders * Telephone Encounter - Catherine Kunz OSA - 07/05/2024 1:23 PM EST 07/06/24 Pt was called to schedule STAT Echo; no apt was available until July 15 so PAR gave pt the number [phone] to schedule the appt ROLA. was going to take care of calling to make appt dueto being in bed with the flu. PAR called pt several times and no answer to talk to pt about scheduling appt. 07/05/24 Rec paperwork from [facility] requesting Medical Evaluation/Consult and and updated Echocardiogram. Paperwork placed in provider's "In box" today. Pre-op appt paperwork attached. * Telephone Encounter - Korina Esposito LPN - 07/05/2024 8:52 AM EST Beatriz from [place] [facility] is calling. States that the pt needs an updated echocardiogram prior to her procedure on 07/18/24. A note from Dr. Luna was faxed to PCP's office twice in this regard. Please advise. documented in this encounter Plan of Treatment Upcoming Encounters Date Type Department Care Team (Late st Contact Info) Description 08/01/2024 8:10 AM EST Laboratory [facility], [place] [address] [place] [phone] [place], [facility] [address] [place] [address] 08/15/2024 10:20 AM EST Office Visit [facility] [address] [place] [phone] Winston Messer MD [address] [place] [address] Scheduled Orders Name Type Priority Associated Diagnoses Orde r Schedule ECHO, COMPLETE (2D), TRANS-THORACIC Echocardiology STAT Pre-op examination Mild aortic stenosis Expected: 07/05/2024 (Approximate), Expires: 01/02/2025 Scheduled Procedures Name Priority Associated Diagnoses Date/Ti me COLONOSCOPY FLEXIBLE PROXIMAL DIAGNOSTIC Recall History of colon polyps Health Maintenance Due Date Last Done Comments Cologuard 09/03/1996 Fecal Occult Blood Test 09/03/1996 Sigmoidoscopy 09/03/1996 Adult Wellness Visit 09/03/2017 COVID-19 Vaccine ( season) 2024 10/01/2020, 08/31/2020 Influenza Vaccine (FLU shot) (#1) 2024 04/21/2023, 08/21/2021, 04/12/2020, Additional history exists DXA Scan 05/07/2024 05/07/2017, 04/07/2001 Albumin/Creatinine Ratio 08/14/20242 024, 07/17/2022, 08/21/2021 Mammogram 10/15/2024 10/16/2023, 09/27, 10/14/2022, Additional history exists HbA1c 12/23/2024 06/24/2024, 08/01/2024, 10/20/2023, Additional history exists Depression Screening 02/11/2025 [...] this encounter Medical Devices Implanted Type Area Senior Application Software Engineer Device Identifier Shelf Expiration Date Model / Serial / Lot Ventralex St [place] With Strap Implanted:Qty: 1 on 01/25/2014 at OR [facility] N/A: Abdomen 06/28/2015 [id number] / / [id number] documented as of this encounter Visit Diagnoses Diagnosis Pre-op examination- Primary Preoperative examination, unspecified Mild aortic stenosis Aortic valve disorders documented in this encounter Advance Directives * [...] and were consensually agreed upon. Care Teams Polygraph Examiner Relationship Specialty Start Date End Date Winston Messer MD [address] [place] [address] PCP - General Family Medicine 12/09/20 documented as of this encounter
--- OUTSIDE RECORDS SUMMARY | 2024-07-18 14:12 | External Medical Summary | Summary of Care ---
Author Name Unknown Organization [facility] Address [address] [place] [address] Phone [phone] Care Team Providers Care Clerical Adjuster Name Role Phone Winston Messer MD Primary Care [facility] Reason for Referral * Precert (Diagnostic Medical) (Within 24 hrs (call dept; emergent)) - Authorized Specialty Diagnoses / Procedures Referred By Contac t Referred To Contact Cardiac Studies Diagnoses Pre-op examination Mild aortic stenosis Procedures ECHO, COMPLETE (2D), TRANS-THORACIC Sameera Van PA-C [address] [place] [phone] Phone: tel: fax: Referral ID Status Reason Start Date Expiration Date V isits Requested Visits Authorized [id number] Authorized Precert 07/05/2024 999 999 Reason for Visit * Reason Onset Date Comments Order Request 07/05/2024 Encounter Details Date Type Department Care Team ([facility] st Contact Info) Description 07/05/2024 Telephone Family Practice [facility] [address] [place] [address] Sameera Van PA-C [address] [place] [phone] Order Request Allergies Active Allergy Reactions [...] week. 6 mL 3 4 Active Nystatin 456367 UNIT/GM External CreamIndications :Intertrigo Apply topically to [...] DELETE [facility] DETECT Study: Project # [id number], Concrete Products Machine Operator: Montrell Jones, PhD. SUMMARY: Goal: Establish test [...] contact study staff at ; after hours Concrete Products Machine Operator via the [facility] magnaflux operator . Please contact study team before resolving/deleting from patients problem list. Study phone number: [phone]. Diagnosis changed due to Research Module. Go to [employer] for study details. Encounter for examination fo r normal comparison and control in clinical research program 07/10/2017 02/27/2022 Overview (10/15/2020): DO NOT DELETE - [facility] Study: Project # [id number], Concrete Products Machine Operator: Enrico Laird, MS, MPH. SUMMARY: Goal: Establish [...] contact study staff at ; after hours Concrete Products Machine Operator via the [facility] magnaflux operator . - Please contact study team before resolving/deleting from patients problem list. Study phone number: [phone]. Diagnosis changed due to Research Module. Go to [employer] for study details. Body mass index (BMI) [...] 1:23 PM EST 07/05/24 Rec paperwork from [facility] requesting Medical Evaluation/Consult and and updated Echocardiogram. Paperwork placed in provider's "In box" today. Pre-op appt paperwork attached. * Telephone Encounter - Korina Esposito LPN - 07/05/2024 8:52 AM EST Beatriz from [place] [facility] is calling. States that the pt needs an updated echocardiogram prior to her procedure on 07/18/24. A note from Dr. Luna was faxed to PCP's office twice in this regard. Please advise. documented in this encounter Plan of Treatment Upcoming Encounters Date Type Department Care Team (Late st Contact Info) Description 07/06/2024 9:30 AM EST Office Visit Pharmacy [facility], [address] [phone] Pharmacist2, [facility] [address] [address] 08/01/2024 8:10 AM EST Laboratory [facility], [address] [phone] [place], [facility] [address] [place] [address] 08/15/2024 10:20 AM EST Office Visit [facility] [address] [place] [address] Winston Messer MD [address] [place] [address] Scheduled Orders Name Type Priority Associated Diagnoses [...] 05/14/2023, Additional history exists GFR 06/24/2025 06/24/2024, /0 01/2024, 08/14/2023, Additional history exists Colonoscopy 10/02/2027 [...] this encounter Medical Devices Implanted Type Area Sales And Distribution Clerk Device Identifier Shelf Expiration Date Model / Serial / Lot Ventralex St [place] With Strap Implanted:Qty: 1 on 01/25/2014 at OR [facility] N/A: Abdomen 06/28/2015 [id number] / / [id number] documented as of this encounter Visit Diagnoses [...] and were consensually agreed upon. Care Teams Clerical Adjuster Relationship Specialty Start Date End Date Winston Messer MD [address] [place] [address] PCP - General Family Medicine 12/09/20 documented as of this encounter
--- OUTSIDE RECORDS SUMMARY | 2024-07-18 14:12 | External Medical Summary | Summary of Care ---
Author Name Unknown Organization [facility] Address [address] [place] [address] Phone [phone] Care Team Providers Care Rehab Department Manager Name Role Phone Winston Messer MD Primary Care P [facility] Encounter Details Date Type Department Care Team (Late st Contact Info) Description 06/24/2024 Result Scan Unspecified Department <No scans attached> Allergies Active Allergy Reactions Criticality Noted Date [...] week. 6 mL 3 4 Active Nystatin 947513 UNIT/GM External CreamIndications :Intertrigo Apply topically to [...] DX E11.9 6 Each 3 4 Active documented as of this encounter (statuses [...] 01/30/2020 Overview (10/15/2020): DO NOT DELETE [facility] APRIL Study: Project # [id number], Transistor Tester: Montrell Jones, PhD. SUMMARY: Goal: Establish test [...] contact study staff at ; after hours Transistor Tester via the [facility] milk bottling machine operator . Please contact study team before resolving/deleting from patients problem list. Study phone number: [phone]. Diagnosis changed due to Research Module. Go to Snapshot for study details. Encounter for examination fo r normal comparison and control in clinical research program 07/10/2017 02/27/2022 Overview (10/15/2020): DO NOT DELETE - [facility] DETECT Study: Project # [id number], Transistor Tester: Enrico Laird, MS, MPH. SUMMARY: Goal: Establish [...] contact study staff at ; after hours Transistor Tester via the [facility] milk bottling machine operator . - Please contact study team before resolving/deleting from patients problem list. Study phone number: [phone]. Diagnosis changed due to Research Module. Go [...] on file documented as of this encounter Plan of Treatment Upcoming Encounters Date Type Department Care Team ([facility] st Contact Info) Description 07/06/2024 9:30 AM EST Office Visit Pharmacy [address] [phone] Pharmacist2, [facility] [place] [address] 08/01/2024 8:10 AM EST Laboratory [facility], [address] [phone] [facility] [address] [address] 08/15/2024 10:20 AM EST Office Visit Family Practice [address] [phone] Winston Messer MD [address] [place] [phone] Scheduled Procedures Name Priority Associated Diagnoses Date/Ti [...] 08/14/2024 024, 07/17/2022, 08/21/2021 Mammogram 10/15/2024 10/16/2023, 1 01/2023, 10/14/2022, Additional history exists HbA1c 12/23/2024 [...] this encounter Medical Devices Implanted Type Area Brick Loader Device Identifier Shelf Expiration Date Model / Serial / Lot Ventralex St [place] With Strap Implanted:Qty: 1 on 01/25/2014 at OR [facility] N/A: Abdomen 06/28/2015 [id number] / / [id number] documented as of this encounter Procedures Procedure Name Priority Date/Time Associated Diagnosis Comments EKG SCANNED RESULT 06/24/2024 documented in this encounter Results * EKG SCANNED RESULT (06/24/2024) 06/24/2024 us No Physician Data Unknown EKG Final Result documented in this encounter Advance Directives * [...] and were consensually agreed upon. Care Teams Rehab Department Manager Relationship Specialty Start Date End Date Winston Messer MD [address] [place] [address] PCP - General Family Medicine 12/09/20 documented as of this encounter
--- OUTSIDE RECORDS SUMMARY | 2024-07-18 14:12 | External Medical Summary | Summary of Care ---
Author Name Unknown Organization [facility] Address [address] [place] [address] Phone [phone] Care Team Providers Care Manager Transit Name Role Phone Winston Messer MD Primary Care P rovider Encounter Details Date Type Department Care Team ([facility] st Contact Info) Description 07/01/2024 Orders Only Family Practice [facility] [address] [place] [address] Lashanda Last PA-C [address] [place] [phone] Allergies Active Allergy Reactions Criticality Noted Date [...] week. 6 mL 3 4 Active Nystatin 159440 UNIT/GM External CreamIndications :Intertrigo Apply topically to [...] (10/15/2020): DO NOT DELETE [facility] DETECT Study: Project # [id number], Supervisor Denture Department: Montrell Jones, PhD. SUMMARY: Goal: Establish test [...] contact study staff at ; after hours Supervisor Denture Department via the [facility] mangle operator garments . Please contact study team before resolving/deleting from patients problem list. Study phone number: [phone]. Diagnosis changed due to Research Module. Go to [employer] for study details. Encounter for examination fo r normal comparison and control in clinical research program 07/10/2017 02/27/2022 Overview (10/15/2020): DO NOT DELETE - [facility] DETECT Study: Project # [id number], Supervisor Denture Department: Enrico H. Laird, MS, MPH. SUMMARY: Goal: Establish test [...] contact study staff at ; after hours Supervisor Denture Department via the [facility] hospital mangle operator garments . - Please contact study team before resolving/deleting from patients problem list. Study phone number: [phone]. Diagnosis changed due to Research Module. Go [...] Upcoming Encounters Date Type Department Care Team ([facility] st Contact Info) Description 07/06/2024 9:30 AM EST Office Visit Pharmacy [address] [phone] Pharmacist2, [facility] [address] [address] 08/01/2024 8:10 AM EST Laboratory [facility], [address] [phone] [place], [facility] [address] [place] [address] 08/15/2024 10:20 AM EST Office Visit [facility] [address] [place] [phone] Winston Messer MD [address] [place] [address] Scheduled Procedures Name Priority Associated Diagnoses Date/Ti [...] Cancer Screening 10/02/2027 Lipid Panel 02/03/2029 02/04/2024, 08/02/2023, 07/17/2022, Additional history exists DTap/Tdap Vaccines (2 [...] this encounter Medical Devices Implanted Type Area Wardsperson Device Identifier Shelf Expiration Date Model / Serial / Lot Ventralex St [place] With Strap Implanted:Qty: 1 on 01/25/2014 at OR [facility] N/A: Abdomen 06/28/2015 [id number] / / [id number] documented as of this encounter Procedures Procedure Name Priority Date/Time Associated Diagnosis Comments XR CHEST 2 VIEWS Routine 06/24/2024 CHEMISTRY-OUTSIDE Routine 06/24/2024 documented in this encounter Results * (ABNORMAL) CHEMISTRY-OUTSIDE (06/24/2024) Not all results display below - see scan for full detail OUTSIDE LAB (SEE SCANNED REPORT) Comment:SCAN INCLUDES - PRE- ADMISSION LABS: BMP, HBA1C, CBCD, PT, INR, PTT, UA CREATININE 0.60 0.6 - 1.2 MG/DL OUTSIDE LAB (SEE SCANNED REPORT) EGFR 95.31 OUTSIDE LA B (SEE SCANNED REPORT) POTASSIUM 3.7 3.5 - 5.1 MMOL/L OUTSIDE LAB (SEE SCANNED REPORT) GLUCOSE 134(A) 70 - 99 MG/DL OUTSIDE LAB (SEE SCANNED REPORT) HOURS FASTING OUTSID E LAB (SEE SCANNED REPORT) TRIGLYCERIDES-OU TSIDE LAB OUTSIDE LAB (SEE SCANNED REPORT) CHOLESTEROL-OUTS [place] [facility] OUTSIDE LAB (SEE SCANNED REPORT) HDL-OUTSIDE LAB OUTS [place] [facility] (SEE SCANNED REPORT) CHOL/HDL RATIO-OUTSIDE LAB OUTSIDE LAB (SEE SCANNED REPORT) LDL (CALCULATED)-OUT SIDE LAB OUTSIDE LAB (SEE SCANNED REPORT) LDL (DIRECT MEASURE)-OUTSIDE LAB OUTSIDE LAB (SEE SCANNED REPORT) HEMOGLOBIN, Q7M-[place] LAB 7.2(A) 4.5 - 5.6 % OUTSIDE LAB (SEE SCANNED REPORT) PHOSPHORUS-OUTSI DE LAB OUTSIDE LAB (SEE SCANNED REPORT) PTH-OUTSIDE LAB OUTS [place] [facility] (SEE SCANNED REPORT) MICROALBUMIN RATIO-OUTSIDE LAB OUTSIDE LAB (SEE SCANNED REPORT) PROTEIN, UA-OUTSIDE LAB NEGATIVE NEGATIVE OUTSIDE LAB (SEE SCANNED REPORT) HGB 13.1 12.0 - 16.0 G/DL OUTSIDE LAB (SEE SCANNED REPORT) 06/24/2024 Vincenzo Luna DO LABORATORY Fin al Result OUTSIDE LAB (SEE SCANNED REPORT) * XR CHEST 2 VIEWS (06/24/2024) Anatomical Region Laterality Modality Chest Other 06/24/2024 Vincenzo Luna DO RADIOLOGY (RAD GENE RAL) Final Result documented in this encounter Advance [...] and were consensually agreed upon. Care Teams Manager Transit Relationship Specialty Start Date End Date Winston Messer MD [address] [place] [address] [phone] PCP - General Family Medicine 12/09/20 documented as of this encounter
--- OUTSIDE RECORDS SUMMARY | 2024-07-18 14:12 | External Medical Summary | Summary of Care ---
Author Name Unknown Organization [facility] Address [address] [place] [address] Phone [phone] Care Team Providers Care Tank Maker Wood Name Role Phone Winston Messer MD Primary Care [facility] Reason for Referral * Precert (Diagnostic Medical) (Within 24 hrs (call dept; emergent)) - Authorized Specialty Diagnoses / Procedures Referred By Contac t Referred To Contact Cardiac Studies Diagnoses Pre-op examination Mild aortic stenosis Procedures ECHO, COMPLETE (2D), TRANS-THORACIC Sameera Van PA-C [address] [place] [phone] Phone: tel: fax: Referral ID Status Reason Start Date Expiration Date V isits Requested Visits Authorized [id number] Authorized Precert 07/05/2024 999 999 Reason for Visit * Reason Onset Date Comments Order Request 07/05/2024 Encounter Details Date Type Department Care Team ([facility] st Contact Info) Description 07/05/2024 Telephone Family Practice [facility] [address] [place] [address] Sameera Van PA-C [address] [place] [phone] Order Request Allergies Active Allergy Reactions [...] week. 6 mL 3 4 Active Nystatin 541978 UNIT/GM External CreamIndications :Intertrigo Apply topically to [...] DELETE [facility] DETECT Study: Project # [id number], News Production Assistant: Montrell Jones, PhD. SUMMARY: Goal: Establish [...] contact study staff at ; after hours News Production Assistant via the [facility] power chisel operator . Please contact study team before resolving/deleting from patients problem list. Study phone number: [phone]. Diagnosis changed due to Research Module. Go to Snapshot for study details. Encounter for examination fo r normal comparison and control in clinical research program 07/10/2017 02/27/2022 Overview (10/15/2020): DO NOT DELETE - [facility] Study: Project # [id number], News Production Assistant: Enrico Laird, MS, MPH. SUMMARY: Goal: [...] contact study staff at ; after hours News Production Assistant via the [facility] power chisel operator . - Please contact study team before resolving/deleting from patients problem list. Study phone number: [phone]. Diagnosis changed due to Research Module. Go to [employer] for study details. Body mass index (BMI) [...] encounter Miscellaneous Notes * Telephone Encounter - Manyn Armenta - 07/06/2024 11:55 AM EST [place] ended up having a cancellation for 06/14/2025. This is before patients' surgery date. Appointment scheduled and patient aware. Sending as FYI * Addendum Note - Sameera Van PA-C - 07/05/2024 2:37 PM ESTAddended by: SAMEERA VAN on: 07/05/2024 02:37 PM Modules accepted: Orders * Telephone Encounter - Catherine Kunz OSA - 07/05/2024 1:23 PM EST 07/06/24 Pt was called to schedule STAT Echo; no apt was available until July 15 so PAR gave pt the number [phone] to schedule the appt ROLA. was going to take care of calling to make appt dueto being in bed with the flu. PAR called pt several times and no answer to talk to pt about scheduling appt. 07/05/24 Rec paperwork from [facility] requesting Medical Evaluation/Consult and and updated Echocardiogram. Paperwork placed in provider's "In box" today. Pre-op appt paperwork attached. * Telephone Encounter - Korina Esposito LPN - 07/05/2024 8:52 AM EST Beat[facility] from [facility] is calling. States that the pt needs an updated echocardiogram prior to her procedure on 07/18/24. A note from Dr. Luna was faxed to PCP's office twice in this regard. Please advise. documented in this encounter Plan of Treatment Upcoming Encounters Date Type Department Care Team (Late st Contact Info) Description 07/15/2024 12:00 PM EST Cardiac Studies Cardiac Studies, [facility] [address] [place] [address] 08/01/2024 8:10 AM EST Laboratory Laboratory Patient Service [address] [address] [place], [facility] [address] [place] [address] 08/15/2024 10:20 AM EST Office Visit [facility] [address] [place] [phone] Winston Messer MD [address] [place] [address] Scheduled Orders Name Type Priority Associated Diagnoses [...] this encounter Medical Devices Implanted Type Area Reel System Operator Device Identifier Shelf Expiration Date Model / Serial / Lot Ventralex St [place] With Strap Implanted:Qty: 1 on 01/25/2014 at OR [facility] N/A: Abdomen 06/28/2015 [id number] / / [id number] documented as of this encounter Visit Diagnoses [...] and were consensually agreed upon. Care Teams Tank Maker Wood Relationship Specialty Start Date End Date Winston Messer MD [address] [place] [address] PCP - General Family Medicine 12/09/20 documented as of this encounter
--- OUTSIDE RECORDS SUMMARY | 2024-07-18 14:12 | External Medical Summary | Summary of Care ---
Author Name Unknown Organization [facility] Address [address] [place] [address] Phone [phone] Care Team Providers Care It Business Process Architect Name Role Phone Winston Messer MD Primary Care P rovider Encounter Details Date Type Department Care Team ([facility] st Contact Info) Description 07/06/2024 Telephone Family [address] [phone] Winston Messer MD [address] [place] [address] Allergies Active Allergy Reactions Criticality Noted [...] week. 6 mL 3 4 Active Nystatin 157054 UNIT/GM External CreamIndications :Intertrigo Apply topically to [...] 01/30/2020 Overview (10/15/2020): DO NOT DELETE [facility] DETECT Study: Project # [id number], Dog License Officer Supervisor: Montrell Jones, PhD. SUMMARY: Goal: Establish test [...] contact study staff at ; after hours Dog License Officer Supervisor via the [facility] hospital pyrometer operator . Please contact study team before resolving/deleting from patients problem list. Study phone number: [phone]. Diagnosis changed due to Research Module. Go to Snapshot for study details. Encounter for examination fo r normal comparison and control in clinical research program 07/10/2017 02/27/2022 Overview (10/15/2020): DO NOT DELETE - [facility] DETECT Study: Project # [id number], Dog License Officer Supervisor: Enrico Laird, MS, MPH. SUMMARY: Goal: Establish [...] contact study staff at ; after hours Dog License Officer Supervisor via the [facility] hospital pyrometer operator . - Please contact study team before resolving/deleting from patients problem list. Study phone number: [phone]. Diagnosis changed due to Research Module. Go [...] Telephone Encounter - Catherine Kunz OSA - 07/06/2024 11:29 AM EST 07/06/24 PAR called pt and talked to since was in bed sick with the flu. PAR gave pt's the number [phone] to call and schedule a STAT Echo needed before upcoming surgery. Pt was called several times and no one answered. documented in this encounter Plan of Treatment Upcoming Encounters Date Type Department Care Team (Late st Contact Info) Description 08/01/2024 8:10 AM EST Laboratory Laboratory [facility], [place] [address] [place] [address] [facility] [address] [place] [address] 08/15/2024 10:20 AM EST Office Visit Family [facility] [address] [place] [address] Winston Messer MD [address] [place] [address] Scheduled Procedures Name Priority Associated Diagnoses Date/Ti [...] 08/14/2024 024, 07/17/2022, 08/21/2021 Mammogram 10/15/2024 10/16/2023, 09/27, 10/14/2022, Additional history exists HbA1c 12/23/2024 06/24/2024, 08/0 01/2024, 10/20/2023, Additional history exists Depression Screening 02/11/2025 02/12/2024 Diabetic Foot Exam 02/11/2025 02/12/2024, 0 02/11/2023, 01/20/2022, Additional history exists Diabetic Eye Exam 05/16/2025 05/16/2024, , 05/14/2023, Additional history exists GFR 06/24/2025 06/24/2024, 0 01/2024, 08/14/2023, Additional history exists Colonoscopy 10/02/2027 10/01/2022, 0 10/2022, 03/16/2019, Additional history exists Colorectal Cancer Screening 10/02/2027 Lipid Panel 02/03/2029 02/04/2024, 0 02/2023, 07/17/2022, Additional history exists DTap/Tdap Vaccines [...] this encounter Medical Devices Implanted Type Area Motorized Squad Commanding Officer Device Identifier Shelf Expiration Date Model / Serial / Lot Ventralex St [place] With Strap Implanted:Qty: 1 on 01/25/2014 at OR [facility] N/A: Abdomen 06/28/2015 [id number] / / [id number] documented as of this encounter Advance Directives [...] and were consensually agreed upon. Care Teams It Business Process Architect Relationship Specialty Start Date End Date Winston Messer MD [address] [place] [address] PCP - General Family Medicine 12/09/20 documented as of this encounter
--- OUTSIDE RECORDS SUMMARY | 2024-07-18 14:13 | External Medical Summary | Summary of Care ---
Author Name Unknown Organization [facility] Address [address] [place] [address] Phone [phone] Care Team Providers Care Naval Aircrewman Operator Name Role Phone Winston Messer MD Primary Care P rovider Encounter Details Date Type Department Care Team ([facility] st Contact Info) Description 06/27/2024 Telephone Family Practice [facility] [address] [place] [address] Winston Messer MD [address] [place] [address] Allergies Active Allergy Reactions Criticality Noted Date Comments Bee Venom Other (Please comment) 01/10/2014 Localized reaction-large edematous site with one week to recover Sulfa Antibiotics Rash 01/27/2001 documented as of this encounter (statuses as of 06/27/2024) Medications hydrOXYzine HCl 25 MG tabletIndication s:Anxiety [...] week. 6 mL 3 4 Active Nystatin 429902 UNIT/GM External CreamIndications :Intertrigo Apply topically to [...] DAILY 90 Tablet 3 4 Active hydroCHLOROthiaz valenitna 25 MG Oral Tablet (Hydrodiuril)Ind ications:HTN, goal [...] as of this encounter (statuses as of 06/27/2024) Active Problems Problem Noted Date Diagnosed Date [...] as of this encounter (statuses as of 06/27/2024) Resolved Problems Problem Noted Date Diagnosed Date Resolved Date Parkinson's disease 08/13/2022 08/13/19 Ulcer of right second toe, l imited to breakdown of skin 01/20/2022 08/13/2022 Morbid obesity due to excess calories 08/20/2020 08/13/2022 Encounter for examination fo r normal comparison and control in clinical research program 07/10/2017 01/30/2020 Overview (10/15/2020): DO NOT DELETE [employer] DETECT Study: Project # [id number], Handicapper Harness Racing: Montrell Jones, PhD. SUMMARY: Goal: Establish test [...] contact study staff at ; after hours Handicapper Harness Racing via the [facility] hospital packer operator automatic . Please contact study team before resolving/deleting from patients problem list. Study phone number: [phone]. Diagnosis changed due to Research Module. Go to Snapshot for study details. Encounter for examination fo r normal comparison and control in clinical research program 07/10/2017 02/27/2022 Overview (10/15/2020): DO NOT DELETE - [employer] DETECT Study: Project # [id number], Handicapper Harness Racing: Enrico Laird, MS, MPH. SUMMARY: Goal: Establish [...] contact study staff at ; after hours Handicapper Harness Racing via the [facility] hospital packer operator automatic . - Please contact study team before resolving/deleting from patients problem list. Study phone number: [phone]. Diagnosis changed due to Research Module. Go [...] as of this encounter (statuses as of 06/27/2024) Immunizations Name Administration Dates Next Due COVID-19 [...] Telephone Encounter - Catherine Kunz OSA - 06/27/2024 11:19 AM EST 06/27/24 Successfully faxed HARPREET to [facility]Dr. Vincenzo Luna for results from testing for upcoming surgery per provider's request (Lashanda Last). Sent to [facility]. documented in this encounter Plan of Treatment Upcoming Encounters Date Type Department Care Team (Latest Contact Info) Description 07/06/2024 9:30 AM EST Office Visit Pharmacy [address] [address] Pharmacist2, [address] [address] 07/11/2024 12:30 PM EST Hospital Encounter OR [facility], Operating Room [facility] [address] [place] [phone] Ben Núñez, DO [address] [place] [address] 07/11/2024 12:30 PM EST - 07/11/2024 12:55 PM EST Surgery OR [facility], Operating Room [facility] [address] [place] [phone] Ben Núñez, DO [address] [place] [phone] INJECTION SPINE LUMBAR OR SACRAL 08/01/2024 8:10 AM EST Laboratory Laboratory [facility] Center[address] [phone] [address] [address] 08/15/2024 10:20 AM EST Office Visit Family [address] [phone] Winston Messer MD [address] [place] [address] Scheduled Procedures Name Priority Associated Diagnoses Date/Ti me INJECTION SPINE LUMBAR OR SACRAL Lumbar radiculopathy 07/11/2024 12:30 PM EST COLONOSCOPY FLEXIBLE PROXIMAL DIAGNOSTIC Recall History of colon polyps Health Maintenance Due Date Last Done Comments Cologuard 09/03/1996 Fecal Occult Blood Test 09/03/1996 Sigmoidoscopy 09/03/1996 Adult Wellness Visit 09/03/2017 COVID-19 Vaccine ( season) 2024 10/01/2020, 08/31/2020 Influenza Vaccine (FLU shot) (#1) 2024 04/21/2023, 08/21/2021, 04/12/2020, Additional history exists DXA Scan 05/07/2024 05/07/2017, 04/07/2001 HbA1c 08/06/2024 02/04/2024, 09/28, 08/14/2023, Additional history exists Albumin/Creatinine Ratio 08/14/2024 024, 07/17/2022, 08/21/2021 Mammogram 10/15/2024 10/16/2023, 09/27, 10/14/2022, Additional history exists GFR 02/03/2025 02/04/2024, 07/30, 02/26/2023, Additional history exists Depression Screening 02/11/2025 02/12/2024 Diabetic Foot Exam 02/11/2025 02/12/2024, 0 02/11/2023, 01/20/2022, Additional history exists Diabetic Eye Exam 05/16/2025 05/16/2024, , 05/14/2023, Additional history exists Colonoscopy 10/02/2027 10/01/2022, 04/0 [...] this encounter Medical Devices Implanted Type Area Manager Billing Device Identifier Shelf Expiration Date Model / Serial / Lot Ventralex St [place] With Strap Implanted:Qty: 1 on 01/25/2014 at OR [facility] N/A: Abdomen 06/28/2015 [id number] / / [id number] documented as of this encounter Advance Directives [...] and were consensually agreed upon. Care Teams Naval Aircrewman Operator Relationship Specialty Start Date End Date Winston Messer MD [address] [place] [address] PCP - General Family Medicine 12/09/20 documented as of this encounter
--- OUTSIDE RECORDS SUMMARY | 2024-07-18 14:13 | External Medical Summary | Summary of Care ---
Author Name Unknown Organization [facility] Address [address] [place] [address] Phone [phone] Care Team Providers Care Industrial Relations Counselor Name Role Phone Winston Messer MD Primary Care [facility] Encounter Details Date Type Department Care Team (Late st Contact Info) Description 06/28/2024 Telephone Interventional [facility], [facility] [address] [place] [address] Ben Núñez, [address] [place] [phone] Allergies Active Allergy Reactions Criticality Noted Date Comments Bee Venom Other (Please comment) 01/10/2014 Localized reaction-large edematous site with one week to recover Sulfa Antibiotics Rash 01/27/2001 documented as of this encounter (statuses as of 06/28/2024) Medications hydrOXYzine HCl 25 MG tabletIndication s:Anxiety [...] week. 6 mL 3 4 Active Nystatin 059282 UNIT/GM External CreamIndications :Intertrigo Apply topically to [...] as of this encounter (statuses as of 06/28/2024) Active Problems Problem Noted Date Diagnosed Date [...] as of this encounter (statuses as of 06/28/2024) Resolved Problems Problem Noted Date Diagnosed Date Resolved Date Parkinson's disease 08/13/2022 08/13/19 Ulcer of right second toe, l imited to breakdown of skin 01/20/2022 08/13/2022 Morbid obesity due to excess calories 08/20/2020 08/13/2022 Encounter for examination fo r normal comparison and control in clinical research program 07/10/2017 01/30/2020 Overview (10/15/2020): DO NOT DELETE [facility] DETECT Study: Project # [id number], Adjunct Instructor In Economics: Montrell Jones, PhD. SUMMARY: Goal: Establish test [...] contact study staff at ; after hours Adjunct Instructor In Economics via the [facility] hospital lead furnace operator . Please contact study team before resolving/deleting from patients problem list. Study phone number: [phone]. Diagnosis changed due to Research Module. Go to Snapshot for study details. Encounter for examination fo r normal comparison and control in clinical research program 07/10/2017 02/27/2022 Overview (10/15/2020): DO NOT DELETE - [facility] DETECT Study: Project # [id number], Adjunct Instructor In Economics: Enrico Laird, MS, MPH. SUMMARY: Goal: Establish [...] contact study staff at ; after hours Adjunct Instructor In Economics via the [facility] hospital lead furnace operator . - Please contact study team before resolving/deleting from patients problem list. Study phone number: [phone]. Diagnosis changed due to Research Module. Go [...] as of this encounter (statuses as of 06/28/2024) Immunizations Name Administration Dates Next Due COVID-19 [...] encounter Miscellaneous Notes * Telephone Encounter - Pamela Julian LPN - 06/28/2024 11:49 AM EST Can cancel upcoming inj-patient is having spine surgery documented in this encounter Plan of Treatment Upcoming Encounters Date Type Department Care Team ([facility] Contact Info) Description 07/06/2024 9:30 AM EST Office Visit Pharmacy [address] [address] Pharmacist2, [facility] [address] [address] 08/01/2024 8:10 AM EST Laboratory Laboratory Patient Service Center, [address] [phone] [place], [facility] [address] [place] [address] 08/15/2024 10:20 AM EST Office Visit [address] [address] Winston Messer MD [address] [place] [phone] Scheduled Procedures Name Priority Associated Diagnoses Date/Ti [...] this encounter Medical Devices Implanted Type Area Air Defense Specialist Device Identifier Shelf Expiration Date Model / Serial / Lot Ventralex [facility] [place] With Strap Implanted:Qty: 1 on 01/25/2014 at OR [facility] N/A: Abdomen 06/28/2015 [id number] / / [id number] documented as of this encounter Advance Directives [...] and were consensually agreed upon. Care Teams Industrial Relations Counselor Relationship Specialty Start Date End Date Winston Messer MD [address] [place] [address] PCP - General Family Medicine 12/09/20 documented as of this encounter
[2024-07-18] MEDS: FLOSEAL HEMOSTATIC MATRIX 10ML TOP ONE (14:51)
--- NOTE | 2024-07-18 15:03 | Operative Report ---
Post Operative Report Pre & Post Diagnosis Operation Date: 07/18/24 12:15 Pre-Op Diagnosis: Lumbar Foraminal Stenosis, Lumbar Disc Disease. Lumbar spinal stenosis with neurogenic claudication Post-Op Diagnosis: Same I identified the patient and participated in the time-out.: Yes Procedure Operation Date: 07/18/24 12:15 Actual Procedures #1 lumbar decompression bilaterally facetectomies and foraminotomies L3-L4 L4-5 L5-S1. #2 posterior spinal fusion L4-L5 L5-S1. #3 placement posterior instrumentation L4-S1. #4 interbody fusion L4-L5 L5-S1. #5 placement Spira 12 x 26 mm at L4-5 and 13 x 26 mm x 2 at L5-S1. #6 placement locally harvested morselized autograft posterior gutters. #7 placement infuse collagen sponge, with Koros in the posterior lateral gutters and os design interbody space. #8 placement of versa wrap over the exposed dura. Surgeon Vincenzo Luna, DO Cream Hauler Gerardo Milian Estimated Blood Loss 500 Findings See Below The patient is 5 foot 10 weighing over 84 kg with a BMI in excess of 38. The patient brought a piece did contribute to significant technical difficulty with the proximal positioning exposure and the procedure itself. This had at least 50% increased operative time. Specimens None Indications This is a 73-year-old female presents publish diagnosis of failed course of nonoperative care is here for surgical invention. Description of Procedure Patient was met with identified informed consent obtained. Patient was then taken to the operative suite underwent intubation placed in a prone position on the Bolivar table top Josiah frame. All bony prominences well-padded eyes inspected to ensure no external precipice upon them. This point lumbar spine was prepped and draped in a sterile fashion. Sharp dissection with the assistance of Bovie cautery form down to and exposing the lamina transverse pr ocesses of L4-L5 and sacral ala bilaterally. From caudal to cephalad fashion complete laminectomy of L5 was performed including bilateral medial facetectomies and foraminotomies addressing severe spinal stenosis. This was followed by complete laminectomy at L4. Again bilateral medial facetectomies and foraminotomies performed to address severe spinal stenosis and lastly partial laminectomy of L3 with bilateral medial facetectomies address all subarticular stenosis. Pedicle screws were then placed and all for L5 and S1 levels bilaterally with assistance of fluoroscopy and appropriate size anabel placed. By way of transforaminal approach on the right a discectomy of L5-S1 was performed endplates grade 2 subcortical bleeding bone and a 13 x 26 mm spiral cage filled with os design bone graft tapped in position. Then proceeded to the left transforaminal region at L5-S1. Again discectomy performed. Endplates guarded to subcortical waiting wound. A second 13 x 26 mm Spira cage filled with os design bone graft tapped in position. Then proceeded to the L4- L5 level. By way of a transforaminal approach and a left complete discectomy was performed endplates guided to subcortical main bone and a 12 x 26 mm spiral cage filled with os designed tapped in position. The rods were then compressed locked in final position bilaterally. The transverse processes of L4-L5 and the sacral ala burred to subcortical bleeding bone. Infuse collagen sponge, with Koros and local autograft placed in the posterior lower gutters. 15 round TAE drain inserted. The incision was then closed with 1 Vicryl fascia 2-0 Vicryl subcutaneously and 4 Monocryl for final skin closure. Steri-Strips sterile dressing placed. Patient waken taken PACU stable condition. Please note spinal cord monitoring was utilized at the procedure no changes noted. Gerardo Milian was present at the entire surgery involved the patient positioning complex portion of the surgery and final skin closure. I attest to the content of the Intraoperative Record and any orders documented therein. Any exceptions are noted below.
--- NOTE | 2024-07-18 15:51 | Anesthesiology Progress Note ---
Date of Service July 18, 2024 Anesthesia Post Procedure Vital Signs Vital Signs: Temp Pulse Resp BP Pulse Ox O2 Del Method O2 Flow Rate 07/18/24 15:45 72 12 114/54 L 97 Oxymask 4 07/18/24 15:35 62 12 115/52 L 96 Oxymask 6 07/18/24 15:25 64 12 105/47 L 96 Oxymask 8 07/18/24 15:15 36.5 C 70 10 L 107/52 L 96 Oxymask 10 07/18/24 11:13 36.6 C 71 20 167/88 H 98 Room Air Pain Intensity Left Leg: Pain Intensity: 8 Transfer of Care Handoff Completed per policy Notes Mental Status: alert / awake / arousable Patient Amnestic to Procedure: Yes Nausea / Vomiting: adequately controlled Pain: adequately controlled Airway Patency, RR, SpO2: stable & adequate BP & HR: stable & adequate Hydration State: stable & adequate Anesthetic Complications: no major complications apparent and Pt Satisfied with anesthetic care
[2024-07-18] MEDS ORDERED: NALOXONE HCL 0.4 MG/1 ML VIAL/CARP IV PRN (16:37)
[2024-07-18] MEDS ORDERED: DO NOT ADMINISTER PNEUMOCOCCAL VACCINE PRN (16:37)
[2024-07-18] MEDS ORDERED: traMADol HCL 50 MG TABLET PO PRN (16:37)
[2024-07-18] MEDS ORDERED: PHARMACY GLYCEMIC MGMT CONSULT PRN (16:37)
[2024-07-18] MEDS ORDERED: hydrOXYzine HCl 25 MG TAB PO PRN (16:37)
[2024-07-18] MEDS ORDERED: ACETAMINOPHEN 500 MG TAB PO PRN (16:37)
[2024-07-18] MEDS ORDERED: DO NOT ADMINISTER FLU VACCINE PRN (16:37)
[2024-07-18] MEDS ORDERED: bisacodyL 10 MG SUPP PR PRN (16:37)
[2024-07-18] MEDS ORDERED: ONDANSETRON INJ 2 MG/ML 2 ML VIAL IV PRN (16:37)
[2024-07-18] MEDS ORDERED: METOCLOPRAMIDE HCL INJ 5 MG/ML 2 ML VIAL IV PRN (16:37)
[2024-07-18] MEDS ORDERED: FAMOTIDINE 20 MG TAB PO PRN (16:37)
[2024-07-18] MEDS ORDERED: ALUMINUM/MAGNESIUM SUSP 30 ML UDC PO PRN (16:37)
[2024-07-18] MEDS ORDERED: ONDANSETRON 4 MG OD TAB PO PRN (16:37)
[2024-07-18] MEDS ORDERED: PROMETHAZINE 12.5 MG/50.5 ML BAG IV PRN (16:37)
[2024-07-18] MEDS ORDERED: HYDROmorphone INJ 0.5 MG/0.5 ML SYR IV PRN (16:37)
[2024-07-18] MEDS ORDERED: ACETAMINOPHEN 1,000 MG/100 ML VIAL IV PRN (16:37)
[2024-07-18] MEDS ORDERED: LORazepam 0.5 MG TAB PO PRN (16:37)
[2024-07-18] MEDS ORDERED: diphenhydrAMINE Capsule 25 MG CAP PO PRN (16:37)
[2024-07-18] MEDS ORDERED: SOD PHOSPHATE/SOD BIPHOSPHATE ENEMA 132 ML BTL PR PRN (16:37)
[2024-07-18] MEDS ORDERED: LORazepam 2 MG/1 ML VIAL IV PRN (16:37)
[2024-07-18] MEDS: HYDROmorphone INJ 1 MG/ML SYRINGE IV PRN (16:45)
[2024-07-18] MEDS ORDERED: CARBOHYDRATES FOR HYPOGLYCEMIA PO PRN (17:00)
[2024-07-18] MEDS ORDERED: GLUCOSE 10 TAB/TUBE PO PRN (17:00)
[2024-07-18] MEDS ORDERED: GLUCAGON FOR INJ 1 MG VIAL SQ PRN (17:00)
[2024-07-18] MEDS ORDERED: DEXTROSE 50% 50 ML SYRINGE IV PRN (17:00)
[2024-07-18] MEDS ORDERED: GLUCOSE 40% GEL 15 GM TUBE PO PRN (17:00)
--- NOTE | 2024-07-18 17:41 | Hospitalist Consultation ---
Date of Consultation July 18, 2024 Assessment & Plan (1) Lumbosacral spondylosis with radiculopathy: s/p L3-S1 decompression and fusion today by Dr Luna. (2) Status post lumbar surgery: Post op day# 0 S/P L3-S1 decompression and fusion by Dr Luna EBL#500ml Pain management per ortho Wound management per ortho PT/OT as appropriate DVT prophylaxis per ortho Incentive spirometry Monitor H&H for acute blood loss anemia; pre-op Hgb: 13 (3) Hypertension: Hold home HCTZ, losartan and reassess tomorrow Continue metoprolol succinate (4) Diabetes mellitus, type 2: A1c: 7.2 in 05/2024 Hold home glycemic meds Basal bolus insulin per protocol. Appreciate glycemic pharmacist managing (5) Hyperlipidemia: Continue atorvastatin (6) Depression: Continue home desvenlafaxine DVT Prophylaxis SCDs Disposition per primary service Follows with Dr Scot Barahona for routine care Pt was seen and care coordinated with Dr Anna. See addendum Thank you for this consultation. We will follow the patient with you during their hospital stay. [facility] via [facility] Supervising Physician Co-Signing Physician Notes Pt seen and examined by me, care coordinated w/ JKalani Chris PA-C, pls refer to her note above for further detail. 73 yo F with hx of mild , mild MR, HTN, DM2, dyslipidemia, depression seen in medical consultation s/p L3-S1 decompression and fusion today by Dr Luna. Post op patient reports is doing well and back pain is controlled. Has Castellanos cath in place. Denies fever/chills, abd. pain N/V/ CP, shortness of breath. Overall feels well. She is awake, alert, answers appropriately. Lungs CTAB. Abdomen soft , nontender. Moves extremities. Hold losartan , HCTZ for now. Monitor BP. Monitor H&H. MD Shoshana History of Present Illness Reason for Consultation: med consult Requesting Physician: Dr. Luna Attending Physician: Vincenzo Luna DO History of Present Illness Patient is 73 year old female with PMH mild , mild MR, HTN, DM2, dyslipidemia, depression seen in medical consultation s/p L3-S1 decompression and fusion today by Dr Luna. Post op patient reports is doing well and back pain is controlled. Has Castellanos cath in place. Last BM yesterday. Denies fever/chills, N/ V/D/C, YAP, dizziness, CP, SOB, palpitations, cough, sore throat, rhinorrhea, abdominal pain, paresthesias, extremity weakness, extremity edema, rashes, urinary symptoms. Allergies Allergy/AdvReac Type Severity Reaction Status Date / Time venom-honey bee Allergy Severe swelling Verified 07/18/24 11:09 Sulfa (Sulfonamide Allergy Intermediate Rash Verified 07/18/24 11:09 Antibiotics) Home Medications Medication Instructions Recorded Confirmed Type amoxicillin 500 mg capsule 500 mg PO UD 06/08/24 07/18/24 History celecoxib 200 mg capsule (Celebrex) 200 mg PO QAM 06/08/24 07/18/24 History cyanocobalamin (vitamin B-12) 1,000 mcg PO QAM 06/08/24 07/18/24 History 1,000 mcg tablet desvenlafaxine succinate 50 mg 50 mg PO QAM 06/08/24 07/18/24 History tablet,extended release 24 hr dulaglutide 1.5 mg/0.5 mL 3 mg subcut WK 06/08/24 07/18/24 History subcutaneous pen injector (Trulicity) gabapentin 300 mg capsule 300 mg PO BID 06/08/24 07/18/24 History hydrochlorothiazide 25 mg tablet 25 mg PO QAM 06/08/24 07/18/24 History losartan 50 mg tablet 50 mg PO QAM 06/08/24 07/18/24 History metformin 500 mg tablet 1,000 mg PO BID 06/08/24 07/18/24 History metoprolol succinate 50 mg 50 mg PO QAM 06/08/24 07/18/24 History tablet,extended release 24 hr tramadol 50 mg tablet 50 mg PO Q6H PRN prn 06/08/24 07/18/24 History atorvastatin 20 mg tablet 20 mg PO DAILY 07/18/24 07/18/24 History oxycodone 5 mg tablet 5 mg PO Q6H PRN pain #30 tabs 07/19/24 Rx tramadol 50 mg tablet 50 mg PO Q6H PRN pain, moderate 07/19/24 Rx #30 tabs Patient History Medical History Mitral regurgitation mild on 2019 echo Aortic valve stenosis mild on 2019 echo Lumbar radiculopathy Osteoarthritis History of kidney stones passed on own-2013 Diabetes mellitus, type 2 NIDDM Depression Hyperlipidemia Hypertension controlled, stable per pt Surgical History History of toe surgery great toe, right History of total knee arthroplasty right History of umbilical hernia repair x 2 Social History Smoking Status: Never smoker Second Hand Exposure: No; Do You Dip or Chew Tobacco: No; Tobacco Cessation Education Requested by Patient: No Hx Alcohol Use: No Hx Substance Use: No Preferred Language: Korean Communication Ability: Effective Helpdesk Specialist Required: No Beliefs That Will Affect Care: None Current Living Situation: Spouse Other Information That Helps Us Care for You: No Feels Safe at Home: Yes Safety Concerns: Feels Safe At This Time Assistive Devices: Cane and Walker Review of Systems Review of Systems: All systems reviewed & are unremarkable except as noted in HPI & below Physical Exam Physical Exam: General: no acute distress, obese female, very pleasant Head: normocephalic, atraumatic Eyes: conjunctiva non-injected, anicteric ENT: normal inspection external ears, nose, mucous membranes moist Neck: supple, trachea midline Lungs: clear, no respiratory distress, no wheezing/rhonchi/rales CV: RRR, + murmur, no pretibial edema Abd: normal BS, soft, non-tender Back: surgical dressing in place, TAE drain in place with serosanguineous drainage Ext: no cyanosis, no calf tenderness, bilateral pedal pushes and pulls intact Neuro: A&O x 3, no focal deficits noted, normal affect Skin: warm, dry Results & Data Results & Data Vital Signs (Past 12 Hours) Vital Signs Temp Pulse Resp BP Pulse Ox O2 Del Method O2 Flow Rate 07/18/24 17:35 66 16 136/65 95 Nasal Cannula 2 07/18/24 17:02 116/66 07/18/24 17:01 Nasal Cannula 2 07/18/24 17:00 36.7 C 64 16 95/59 L 97 Nasal Cannula 2 07/18/24 16:47 36.6 C 67 16 117/72 94 Nasal Cannula 2 07/18/24 16:25 65 12 126/52 L 97 Nasal Cannula 2 07/18/24 16:10 63 12 121/56 L 98 Nasal Cannula 2 07/18/24 15:55 36.5 C 64 12 125/54 L 98 Nasal Cannula 3 07/18/24 15:45 72 12 114/54 L 97 Oxymask 4 07/18/24 15:35 62 12 115/52 L 96 Oxymask 6 07/18/24 15:25 64 12 105/47 L 96 Oxymask 8 07/18/24 15:15 36.5 C 70 10 L 107/52 L 96 Oxymask 10 07/18/24 11:13 36.6 C 71 20 167/88 H 98 Room Air Medications Administered Current Inpatient Medications Acetaminophen (Acetaminophen 500 Mg Tab) 1,000 mg PO PREOP [facility]AVENLY Stop: 07/18/24 18:00 Last Admin: 07/18/24 11:27 Dose: 1,000 mg Acetaminophen (Acetaminophen 500 Mg Tab) 1,000 mg PO Q8H PRN PRN Reason: MILD Pain Scale 1,2,3 & Pre PT Stop: 08/17/24 16:36 Al Hydrox/Mg Hydrox/Simethicone (Aluminum/Magnesium Susp 30 Ml Udc) 30 ml PO Q6H PRN PRN Reason: Dyspepsia Stop: 08/17/24 16:36 Bisacodyl (Bisacodyl 10 Mg Supp) 10 mg NH DAILY PRN PRN Reason: Constipation Stop: 08/17/24 16:36 Celecoxib (Celebrex 200 Mg Cap) 200 mg PO PREOP [facility]ENLY Stop: 07/18/24 18:00 Last Admin: 07/18/24 11:28 Dose: 200 mg Cyanocobalamin (Cyanocobalamin (B-12) 500 Mcg Tablet) 1,000 mcg PO QAM [facility] Stop: 08/18/24 08:59 Dextrose (Dextrose 50% 50 Ml Syringe) 25 - 50 ml IV UD PRN; Protocol PRN Reason: Hypoglycemia Protocol Stop: 08/17/24 16:59 Diphenhydramine HCl (Diphenhydramine Capsule 25 Mg Cap) 25 mg PO Q6H PRN PRN Reason: Allergic Rhinitis/Insomnia Stop: 08/17/24 16:36 Famotidine (Famotidine 20 Mg Tab) 20 mg PO Q12H PRN PRN Reason: Dyspepsia Stop: 08/17/24 16:36 Gabapentin (Gabapentin 300 Mg Cap) 300 mg PO PREOP [facility]EN[facility] Stop: 07/18/24 18:00 Last Admin: 07/18/24 11:28 Dose: 300 mg Gabapentin (Gabapentin 300 Mg Cap) 300 mg PO HS [facility] Stop: 08/17/24 20:59 Glucagon (Glucagon For Inj 1 Mg Vial) 1 mg SQ UD PRN; Protocol PRN Reason: Hypoglycemia Protocol Stop: 08/17/24 16:59 Glucose (Glucose 40% Gel 15 Gm Tube) 15 - 30 gm PO UD PRN; Protocol PRN Reason: Hypoglycemia Protocol Stop: 08/17/24 16:59 Glucose (Glucose 10 Tab/Tube) 4 - 8 tab PO UD PRN; Protocol PRN Reason: Hypoglycemia Protocol Stop: 08/17/24 16:59 Hydrochlorothiazide (Hydrochlorothiazide 25 Mg Tab) 25 mg PO QAM [facility] Stop: 08/18/24 08:59 Hydromorphone HCl (Hydromorphone Inj 0.5 Mg/0.5 Ml Syr) 0.5 mg IV Q3H PRN PRN Reason: MODERATE Pain (Scale 4,5,6) & Pre PT Stop: 08/01/24 16:36 Hydromorphone HCl (Hydromorphone Inj 1 Mg/Ml Syringe) 1 mg IV Q3H PRN PRN Reason: SEVERE Pain (Scale 7,8,9,10) Stop: 08/01/24 16:36 Last Admin: 07/18/24 16:45 Dose: 1 mg Hydroxyzine HCl (Hydroxyzine Hcl 25 Mg Tab) 25 mg PO Q8H PRN PRN Reason: Anxiety Stop: 08/17/24 16:36 Lactated Ringer's (Lr) 1,000 mls @ 15 mls/hr IV .Q24H [facility] Stop: 07/19/24 05:59 Last Infusion: 07/18/24 12:54 Dose: Infused Lactated Ringer's (Lr) 1,000 mls @ 60 mls/hr IV .[id number] [facility] Stop: 07/18/24 22:39 Last Admin: 07/18/24 11:28 Dose: Not Given Cefazolin Sodium (Ancef 2000mg) 2,000 mg in 15 mls @ 3.75 mls/min IV PREOP [facility]; Protocol Stop: 07/18/24 18:00 Last Admin: 07/18/24 12:56 Dose: 3.75 mls/min Acetaminophen (Ofirmev) 1,000 mg in 100 mls @ 400 mls/hr IV Q8H PRN PRN Reason: Pain Rating 1-3 & Pre PT Stop: 07/19/24 16:37 Cefazolin Sodium (Ancef 2000mg) 2,000 mg in 15 mls @ 3.75 mls/min IV Q8H [facility]; Protocol Stop: 07/19/24 05:03 Promethazine HCl (Phenergan) 12.5 mg in 50.5 mls @ 202 mls/hr IV Q6H PRN PRN Reason: Nausea And Vomiting Stop: 08/17/24 16:36 Dexamethasone 6 mg/ Syringe 1.5 mls @ 1 mls/min IV DAILY [facility] Stop: 07/21/24 09:02 Influenza Virus Vaccine Quadrival (Do Not Administer Flu Vaccine) 1 each N/A PRN PRN PRN Reason: Notification Stop: 08/17/24 16:36 Insulin Aspart (Insulin Aspart Per Unit Charge) 0 units SC ACHS [facility] Stop: 08/17/24 16:59 Insulin Aspart (Insulin Aspart Per Unit Charge) 0 units SC ONE ONE Stop: 07/19/24 02:01 Lisinopril (Lisinopril 10 Mg Tab) 10 mg PO QAM [facility] Stop: 08/18/24 08:59 Lorazepam (Lorazepam 0.5 Mg Tab) 0.5 mg PO Q8H PRN PRN Reason: Sedation/Anxiety Stop: 08/17/24 16:36 Lorazepam (Lorazepam 2 Mg/1 Ml Vial) 0.5 mg IV Q8H PRN PRN Reason: Sedation/Anxiety Stop: 08/17/24 16:36 Losartan Potassium (Losartan Potassium 50 Mg Tab) 50 mg PO QAM [facility] Stop: 08/18/24 08:59 Magnesium Hydroxide (Magnesium Hydroxide Susp 30 Ml Udc) 30 ml PO Q24H PRN PRN Reason: Constipation Stop: 08/17/24 16:36 Metoclopramide HCl (Metoclopramide Hcl Inj 5 Mg/Ml 2 Ml Vial) 10 mg IV Q6H PRN PRN Reason: Nausea &/or Vomiting Stop: 08/17/24 16:36 Metoprolol Succinate (Metoprolol Succ 50mg Ext Rel Tab) 50 mg PO QAM [facility] Stop: 08/18/24 08:59 Miscellaneous (*Pristiq*Order Awaiting Action) 1 each N/A QS [facility] Stop: 08/18/24 00:00 Miscellaneous (Carbohydrates For Hypoglycemia ) 15 - 30 gm PO UD PRN PRN Reason: Hypoglycemia Treatment Stop: 08/17/24 16:59 Miscellaneous Information (Pharmacy Glycemic Mgmt Consult) 1 each N/A UD PRN PRN Reason: Consult Stop: 08/17/24 16:36 Naloxone HCl (Naloxone Hcl 0.4 Mg/1 Ml Vial/Carp) 0.1 mg IV Q5M PRN PRN Reason: Oversedation/Resp depression Stop: 08/17/24 16:36 Ondansetron HCl (Ondansetron Inj 2 Mg/Ml 2 Ml Vial) 4 mg IV Q6H PRN PRN Reason: Nausea &/or Vomiting Stop: 08/17/24 16:36 Ondansetron HCl (Ondansetron 4 Mg Od Tab) 4 mg PO Q6H PRN PRN Reason: Nausea Stop: 08/17/24 16:36 Oxycodone HCl (Oxycodone Hcl Ir 5 Mg Tab (Immediate Release)) 5 - 10 mg PO Q4H PRN PRN Reason: Pain & Pre PT Stop: 08/01/24 16:36 Pneumococcal Polyvalent Vaccine (Do Not Administer Pneumococcal Vaccine) 1 each N/A PRN PRN PRN Reason: Notification Stop: 08/17/24 16:36 Polyethylene Glycol (Polyethylene (Miralax) 17 Gm Pack) 17 gm PO Q6 [facility] Stop: 08/18/24 05:59 Senna/Docusate Sodium (Docusate Sodium/Senna 50/8.6mg Tab) 2 tab PO HS [facility] Stop: 08/17/24 20:59 Sodium Biphosphate/Sodium Phosphate (Sod Phosphate/Sod Biphosphate Enema 132 Ml Btl) 132 ml [place] ONE PRN PRN Reason: Constipation Stop: 08/17/24 16:36 Tramadol HCl (Tramadol Hcl 50 Mg Tablet) 50 - 100 mg PO Q4H PRN PRN Reason: Moderate-Severe pain & Pre PT Stop: 08/17/24 16:36
[2024-07-18] MEDS: LANTUS PER UNIT CHARGE SC STA (17:49)
[2024-07-18] MEDS: INSULIN ASPART PER UNIT CHARGE SC SCH (17:50)
[2024-07-18] MEDS: oxyCODONE HCL IR 5 MG TAB (IMMEDIATE RELEASE) PO PRN (19:35)
[2024-07-18] MEDS: DOCUSATE SODIUM/SENNA 50/8.6MG TAB PO SCH (20:11)
[2024-07-19] MEDS: INSULIN ASPART PER UNIT CHARGE SC ONE (01:41)
[2024-07-19] MEDS: POLYETHYLENE (MIRALAX) 17 GM PACK PO SCH (05:39)
--- NOTE | 2024-07-19 07:10 | Hospitalist Progress Note ---
Date of Service July 19, 2024 Assessment & Plan (1) Lumbosacral spondylosis with radiculopathy: (2) Status post lumbar surgery: (3) Acute blood loss anemia: (4) Hypertension: Plan Jhonny Malik is a 73y/o F with PMHx significant for HLD, HTN, DMII, mild , mild MR, grade I diastolic dysfunction, urge incontinence, neurofibromatosis type 1, Lyme disease, drug-induced Parkinsonism and depression who is being seen in routine medical consultation after undergoing elective L3-S1 decompression and fusion performed by Dr. Luna on 07/18/2024. Lumbosacral Spondylosis with Radiculopathy S/P Surgery: POD #1 s/p L3-S1 decompression and fusion with Dr. Luna on 07/18/2024. Per ortho for pain control, wound care, anticoagulation and activities. Continue gabapentin. Continue incentive spirometry, PT/OT when appropriate as per ortho team. Leuk ocytosis likely reactive 2/2 pain, will monitor. Acute Blood Loss Anemia S/P Surgery: EBL: 500mL & Preoperative Hgb: 13.1 [as of 06/24/24]; Hgb now 10.1- suspect 2/2 expected surgical loss w/ additional dilutional component. No need to transfuse at this time. Continue to monitor H/H. HTN: Holding home HCTZ/losartan for now ISO hypotension postoperatively; can continue metoprolol succinate. Monitor BP closely; may need additional IVF. DMII: Home home diabetic meds, basal/bolus regimen while inpatient. Appreciate glycemic pharmacy assistance. Continue BSG checks. Other Chronic Medical Conditions: HLD - Continue statin. Depression - Continue desvenlafaxine. DVT Prophylaxis: SCDs/TEDs as per primary service. Code Status: FULL CODE PCP: Winston Alvarado MD Disposition: Admitted in Med/Surg - PT/OT evaluations pending to determine if need for SNF placement vs. outpatient rehabilitation. Thank you for this consultation. We will follow the patient with you during their hospital stay. You can reach a member of the [facility] Hospitalist Team 19/01 via [employer]. Patient seen in collaboration with Dr. Montano. Please see addendum. I spent a total of 30 minutes coordinating, documenting, and providing care for this patient excluding time spent in the performance of separately billed services and time spent by another provider/QHP. This included personally reviewing all current laboratories and imaging studies, medical reconciliation, outpatient chart review and discussion with specialists. This chart was completed in part utilizing Speech Voice Recognition Software. Grammatical errors, random word insertions, pronoun errors, and incomplete sentences are an occasional consequence of this system due to software limitations, ambient noise, and hardware issues. Any formal questions or co ncerns about the content, text, or information contained within the body of this dictation should be directly addressed to the provider for clarification. Admission and Anticipated Discharge Date Admission Date: July 18, 2024 Supervising Physician Co-Signing Physician Notes Patient seen and examined Agree with plans as detailed by Dilcia Begum PA-C I spent a total of 20 minutes coordinating, documenting and providing care for this patient excluding time spent in performance of separately billed services Subjective Patient seen and examined at bedside this morning in room W4-2. She reports good pain control this morning; mentions she feels better than she expected. Castellanos catheter was removed yesterday. She has been taking a few steps around the room with nursing staff. Will see PT/OT today. Still relatively hypotensive but otherwise VSS. Has TAE drain x [address] which is draining serosanguineous output appropriately. She denies any SOB or chest pain. Review of Systems Review of Systems: At least ten systems reviewed and negative, except as noted in the subjective section. Physical Exam Physical Exam: General: Very pleasant F, NAD, sitting up in bed, conversing appropriately. A+Ox3, euthymic affect. Respiratory: Normal respiratory effort, lungs clear to auscultation, no wheeze/rales/rhonchi. NAD. Cardiovascular: Regular rate, rhythm, + systolic murmur, normal peripheral pulses, no BLE edema. Abdomen/GI: Normal bowel sounds, soft, nondistended, nontender to palpation in all quadrants. Extremities/MSK: Able to actively move all extremities. Surgical dressing C/D/I. TAE drain x 1 intact and draining serosanguineous output. Results & Data Results & Data Vital Signs (Past 12 Hours) Vital Signs Temp Pulse Resp BP BP Pulse Ox O2 Del Method 07/19/24 03:19 36.5 C 62 18 92/54 L 92 Room Air 07/18/24 23:40 36.6 C 60 16 111/61 93 Room Air 07/18/24 21: 36.6 C 62 17 90/52 L 98 Room Air 07/18/24 19:32 92 Room Air 07/18/24 19:30 Nasal Cannula 07/18/24 19:23 36.7 C 63 16 100/63 96 Nasal Cannula O2 Flow Rate 07/19/24 03:19 07/18/24 23:40 07/18/24 21:26 07/18/24 19:32 07/18/24 19:30 2 07/18/24 19:23 1 Laboratory Results Short CBC 07/19/24 Range/Units 07:08 WBC 14.99 H (4.8-10.8) K/ul Hgb 10.1 L (12.0-16.0) g/dl Hct 29.7 L (37.0-47.0) % Plt Count 208 (130-400) K/uL BMP 07/19/24 07:08 Sodium 137 Potassium 4.3 Chloride 102 Carbon Dioxide 29 BUN 20 Creatinine 0.66 Glucose 166 H Calcium 8.7 (4) Hypertension Hypertension type: unspecified Qualified Code(s): I10 - Essential (primary) hypertension
[2024-07-19 07:59] LABS: Basophils # (auto) 0.02 K/uL (0.00-0.20); Basophils % (auto) 0.1 %; Hematocrit (blood only) 29.7 % (37.0-47.0); Hemoglobin 10.1 g/dl (12.0-16.0); Immature Granulocytes # (auto) 0.13 K/uL (0.01-0.20); Immature Granulocytes % (auto) 0.9 %; Lymphocytes # (auto) 1.13 K/uL (1.20-3.40); Lymphocytes % (auto) 7.5 %; Mean Corpuscular Hemoglobin 31.4 pg (25.0-34.0); Mean Corpuscular Volume 92.2 fL (80.0-100.0); Monocytes # (auto) 0.83 K/uL (0.11-0.59); Monocytes % (auto) 5.5 %; Neutrophils # (auto) 12.88 K/uL (1.40-6.50); Platelet Count 208 K/uL (130-400); RDW Coefficient of Variation 12.9 % (11.5-14.5); RDW Standard Deviation 42.8 fL (36.4-46.3); Red Blood Count 3.22 M/uL (4.20-5.40); White Blood Count 14.99 K/ul (4.8-10.8)
--- NOTE | 2024-07-19 08:04 | Fluoroscopy Report ---
FL lumbar spine 2-3V CLINICAL HISTORY: L4-S1 DECOMPRESSION AND FUSION COMPARISON STUDY: None FLUOROSCOPY TIME: 27 FLUOROSCOPY IMAGES: 3 EXPOSURE DOSE: 26 mGy FINDINGS: Fluoroscopy was provided for spinal fusion. IMPRESSION: Intraoperative fluoroscopy. ACT 112: Negative or not required by law. Electronically signed by: Montrell Argueta M.D. 07/19/2024 8:02 AM
[2024-07-19] MEDS: dexAMETHasone 6 MG in SYRINGE 0 ML IV SCH (08:05)
[2024-07-19] MEDS: CYANOCOBALAMIN (B-12) 500 MCG TABLET PO SCH (08:05)
[2024-07-19] MEDS: ATORVASTATIN 20 MG TAB PO SCH (08:05)
[2024-07-19] MEDS: METOPROLOL SUCC 50MG EXT REL TAB PO SCH (08:07)
[2024-07-19] MEDS: LANTUS PER UNIT CHARGE SC SCH (08:07)
[2024-07-19 08:21] LABS: BUN Creatinine Ratio 30.3 (10-20); Calcium 8.7 mg/dl (8.6-10.3); Creatinine Clr Calc Pharmacy 71.7 ml/min; Potassium 4.3 mmol/L (3.5-5.1)
[2024-07-19] MEDS ORDERED: lisinopril 10 MG TAB PO SCH (09:00)
[2024-07-19] MEDS ORDERED: hydroCHLOROthiazide 25 MG TAB PO SCH (09:00)
--- NOTE | 2024-07-19 13:41 | Orthopedic Progress Note ---
Date of Service July 19, 2024 Assessment & Plan (1) Lumbosacral spondylosis with radiculopathy: Plan: At this time continue physical therapy monitor TEA operatively discharge home next few days. Admission and Anticipated Discharge Date Admission Date: July 18, 2024 Subjective Back pain controlled leg pain improved. Physical Exam Physical Exam: Patient is in the chair at the bedside. She is comfortable. Discussed when to testing. Results & Data Vital Signs (Past 12 Hours) Vital Signs Temp Pulse Resp BP Pulse Ox O2 Del Method 07/19/24 11:07 36.7 C 62 18 132/68 92 Room Air 07/19/24 07:56 36.5 C 60 16 112/72 92 Room Air 07/19/24 03:19 36.5 C 62 18 92/54 L 92 Room Air Queries Orthopedic Spine Obesity: Yes
--- NOTE | 2024-07-19 15:04 | Pharmacy Report ---
Pharmacy Glycemic Short Note 2 - Date of Service July 19, 2024 - Glycemic Short BSG Results (Last 24 hours): 07/18/24 07/18/24 07/18/24 15:17 17:19 20:10 Glucose POC Glucose 138 H 173 H 195 H 07/19/24 07/19/24 07/19/24 01:38 07:08 07:35 Glucose 166 H POC Glucose 145 H 168 H 07/19/24 11:28 Glucose POC Glucose 186 H OUTPATIENT ANTIDIABETIC REGIMEN: * Trulicity 3mg SC QMO * metformin 1000mg BID * HbA1c 7.2% (06/24/24) ASSESSMENT: * Jhonny is a 73 YOF admitted status post spinal infusion with a history of T2DM. Pharmacy has been consulted to assist with glycemic management while inpatient. * Preoperative BSG within goal range yesterday, she was given dexamethasone 8mg IV preoperatively. Conservative Lantus at ~0.1units/kg given to cover operative steroids. She continues on dexamethasone 6mg IV QAM x3 days. Will increase to ~0.2 units/kg today since BSGs still climbed some yesterday evening. * NovoLog initiated at a weight based stress of 3, will tighten carbohydrate coverage slightly due to increased BSG yesterday evening after eating PLAN FOR INPATIENT GLYCEMIC CONTROL: * Hold outpatient oral diabetes medications * Basal insulin * Lantus 15 units SQ QAM x3 days (with IV dexamethasone) * Bolus insulin * NovoLog per scale ACHS or Q6hrs while NPO * Goal Range: Low 110 mg/dL - High 140 mg/dL * Correction Factor: 20 mg/dL/unit * Nutritional / Prandial insulin per carb ratio of 1 unit per 6 grams CHO consumed
--- NOTE | 2024-07-20 08:10 | Hospitalist Progress Note ---
Date of Service July 20, 2024 Assessment & Plan (1) Lumbosacral spondylosis with radiculopathy: (2) Status post lumbar surgery: (3) Acute blood loss anemia: (4) Hypertension: Plan Jhonny Malik is a 73y/o F with PMHx significant for HLD, HTN, DMII, mild , mild MR, grade I diastolic dysfunction, urge incontinence, neurofibromatosis type 1, Lyme disease, drug-induced Parkinsonism and depression who is being seen in routine medical consultation after undergoing elective L3-S1 decompression and fusion performed by Dr. Luna on 07/18/2024. Lumbosacral Spondylosis with Radiculopathy S/P Surgery: POD #1 s/p L3-S1 decompression and fusion with Dr. Luna on 07/18/2024. Per ortho for pain control, wound care, anticoagulation and activities. Continue gabapentin. Continue incentive spirometry, PT/OT when appropriate as per ortho team. Leuko cytosis likely reactive 2/2 pain, improving 14.99-->13.36 Has taken THREE doses of Oxy 10 mg PO over past 24 hours. Has not required any IV opioids since 07/18. Not used any Tramadol, Ativan, IV Dilaudid. Acute Blood Loss Anemia S/P Surgery: EBL: 500mL & Preoperative Hgb: 13.1 [as of 06/24/24]; Hgb now 9.2- suspect 2/2 expected surgical loss w/ additional dilutional component. No need to transfuse at this time. Continue to monitor H/H. Opioid induced constipation: taking Miralax and Senna. Need to be cautious of opioid induced constipation. Has taken THREE doses of Oxy 10 mg PO over past 24 hours. Reports (+) flatulance. HTN: Resume Losartan today 07/20 Continue to hold HCTZ and monitor for hypotension postop; continue metoprolol succinate. Monitor BP closely; continues to increase fluid PO intake. DMII: Home home diabetic meds, basal/bolus regimen while inpatient. Appreciate glycemic pharmacy assistance. Continue BSG checks. Other Chronic Medical Conditions: HLD - Continue statin. Depression - Continue desvenlafaxine. DVT Prophylaxis: SCDs/TEDs as per primary service. Code Status: FULL CODE PCP: Winston Alvarado MD Disposition: Admitted in Med/Surg - Goal to be DC home ( and daughter able to assist) tomorrow 07/21; pending ortho recommendation. Thank you for this consultation. We will follow the patient with you during their hospital stay. You can reach a member of the [facility] Hospitalist Team 19/01 via [email or web address]. I spent a total of 45 minutes coordinating, documenting, and providing care for this patient excluding time spent in the performance of separately billed services and time spent by another provider/QHP. This included personally reviewing all current laboratories and imaging studies, medical reconciliation, outpatient chart review and discussion with specialists. This chart was completed in part utilizing Speech Voice Recognition Software. Grammatical errors, random word insertions, pronoun errors, and incomplete sentences are an occasional consequence of this system due to software limitations, ambient noise, and hardware issues. Any formal questions or concerns about the content, text, or information contained within the body of this dictation should be directly addressed to the provider for clarification. Admission and Anticipated Discharge Date Admission Date: July 18, 2024 Supervising Physician Co-Signing Physician Notes delayed entry date of service noted above Attending Addendum: Case reviewed with the advanced practitioner. I have personally performed a history and physical examination on the patient. I have reviewed the advanced practitioner's documentation on the date of service referenced in note, and I agree with, and take responsibility for the plan of care. please refer to her notes for full details patient seen and examined, records reviewed by myself as well diagnoses and plan of care as per advanced practitioner's notes Capo Rizzo MD Subjective Pt sitting in her bedside chair in no apparent distress. She is quite pleasant. Denies chest pain, SOB, neuropathic pain. Tolerating diet well. No N/V/D. Has not had a BM since Monday 07/17; taking Miralax and Senna. Need to be cautious of opioid induced constipation. Review of Systems Review of Systems: At least ten systems reviewed and negative, except as noted in the subjective section. Physical Exam Physical Exam: Neuro: AAOx4, PERRLA, no aphagia, memory changes, CNII-XII grossly intact HEENT: head normocephalic, moist mucus membranes CV: S1/S2, (-) M/G/R, (-) edema, cap refill < 3 seconds TAE drain x1; minimal wilian red blood output. Resp: Lungs CTA in all pereira. On RA GI: Abdomen S/NT/ND, Ax4 bowel sounds, (-) CVA tenderness Musculoskeletal: 5/5 B/L UE strength, 5/5 B/L LE strength. No gait disturbance Skin: (-) rashes , (-) erythema. vertical lumbar surgical incision dressing C/D/I Psych: euthymic mood Results & Data Results & Data Vital Signs (Past 12 Hours) Vital Signs Temp Pulse Resp BP Pulse Ox O2 Del Method 07/19/24 22:28 36.7 C 63 18 146/67 H 96 Room Air Laboratory Results Short CBC 07/20/24 Range/Units 07:56 WBC 13.36 H (4.8-10.8) K/ul Hgb 9.2 L (12.0-16.0) g/dl Hct 27.3 L (37.0-47.0) % Plt Count 186 (130-400) K/uL BMP 07/20/24 07:56 Sodium 137 Potassium 4.2 Chloride 101 Carbon Dioxide 32 BUN 22 Creatinine 0.61 Glucose 169 H Calcium 8.9 (4) Hypertension Hypertension type: unspecified Qualified Code(s): I10 - Essential (primary) hypertension
[2024-07-20] MEDS: LOSARTAN POTASSIUM 50 MG TAB PO SCH (08:26)
[2024-07-20 08:39] LABS: Hematocrit (blood only) 27.3 % (37.0-47.0); Hemoglobin 9.2 g/dl (12.0-16.0); Mean Corpuscular Hemoglobin 31.8 pg (25.0-34.0); Mean Corpuscular Hgb Conc 33.7 g/dL (32.0-36.0); Mean Corpuscular Volume 94.5 fL (80.0-100.0); Mean Platelet Volume 10.3 fL (9.4-12.4); Platelet Count 186 K/uL (130-400); RDW Coefficient of Variation 13.2 % (11.5-14.5); RDW Standard Deviation 45.2 fL (36.4-46.3); Red Blood Count 2.89 M/uL (4.20-5.40); White Blood Count 13.36 K/ul (4.8-10.8)
[2024-07-20 09:02] LABS: BUN Creatinine Ratio 36.1 (10-20); Calcium 8.9 mg/dl (8.6-10.3); Creatinine Clr Calc Pharmacy 77.5 ml/min; Potassium 4.2 mmol/L (3.5-5.1)
--- NOTE | 2024-07-20 12:36 | Orthopedic Progress Note ---
Date of Service July 20, 2024 Assessment & Plan (1) Lumbosacral spondylosis with radiculopathy: Plan: At this time we will continue physical therapy monitor TAE output and advance her bowel regiment anticipate discharge home tomorrow. Admission and Anticipated Discharge Date Admission Date: July 18, 2024 Subjective Patient's back pain is controlled leg symptoms improved Physical Exam Physical Exam: Patient is in the chair at the bedside. She is comfortable. Distracted testing Results & Data Vital Signs (Past 12 Hours) Vital Signs Temp Pulse Resp BP Pulse Ox O2 Del Method 07/20/24 08:20 36.5 C 68 18 104/45 L 95 Room Air Queries Orthopedic Spine Obesity: Yes
[2024-07-20] MEDS: LANTUS PER UNIT CHARGE SC SCH (21:11)
--- NOTE | 2024-07-21 07:24 | Hospitalist Progress Note ---
Date of Service July 21, 2024 Assessment & Plan (1) Lumbosacral spondylosis with radiculopathy: (2) Status post lumbar surgery: (3) Acute blood loss anemia: (4) Hypertension: Plan Jhonny Malik is a 73y/o F with PMHx significant for HLD, HTN, DMII, mild , mild MR, grade I diastolic dysfunction, urge incontinence, neurofibromatosis type 1, Lyme disease, drug-induced Parkinsonism and depression who is being seen in routine medical consultation after undergoing elective L3-S1 decompression and fusion performed by Dr. Luna on 07/18/2024. Lumbosacral Spondylosis with Radiculopathy S/P Surgery: POD #1 s/p L3-S1 decompression and fusion with Dr. Luna on 07/18/2024. Per ortho for pain control, wound care, anticoagulation and activities. Continue gabapentin. Continue incentive spirometry, PT/OT when appropriate as per ortho team. Leuko cytosis likely reactive 2/2 pain, 14.99-->13.36--> 15.85 (suspect reactive post op) No signs of infection at incision site Has taken THREE doses of Oxy 10 mg PO over past 24 hours. Has not required any IV opioids since 07/18. Not used any Tramadol, Ativan, IV Dilaudid. Acute Blood Loss Anemia S/P Surgery: EBL: 500mL & Preoperative Hgb: 13.1 [as of 06/24/24]; Hgb now 9.2-->10.3- suspect 2/2 expected surgical loss w/ additional dilutional component. Opioid induced constipation: taking Miralax and Senna. Need to be cautious of opioid induced constipation. Has taken THREE doses of Oxy 10 mg PO over past 24 hours. Reports (+) flatulance; has taken MOM and Miralax; added Dulcolax Supp for today. HTN:Resumed Losarten on 07/20; BP tolerating. Was originally on lower side. Continue to hold HCTZ and ensure discussed with PCP at follow up to determine if she shouldl resume or not. continue metoprolol succinate. Monitor BP closely; continues to increase fluid PO intake. DMII: Home home diabetic meds, basal/bolus regimen while inpatient. Appreciate glycemic pharmacy assistance. Continue BSG checks. Other Chronic Medical Conditions: HLD - Continue statin. Depression - Continue desvenlafaxine. DVT Prophylaxis: SCDs/TEDs as per primary service. Code Status: FULL CODE PCP: Winston Alvarado MD Disposition: Admitted in Med/Surg - Goal to be DC home ( and daughter able to assist) today 07/21; pending ortho recommendation. Once pt has BM, ok to be discharged from medical perspective. Thank you for this consultation. We will follow the patient with you during their hospital stay. You [facility] a [facility] via Get In. I spent a total of 47 minutes coordinating, documenting, and providing care for this patient excluding time spent in the performance of separately billed services and time spent by another provider/QHP. This included personally reviewing all current laboratories and imaging studies, medical reconciliation, outpatient chart review and discussion with specialists. This chart was completed in part utilizing Speech Voice Recognition Software. Grammatical errors, random word insertions, pronoun errors, and incomplete sentences are an occasional consequence of this system due to software limitations, ambient noise, and hardware issues. Any formal questions or concerns about the content, text, or information contained within the body of this dictation should be directly addressed to the provider for clarification. Admission and Anticipated Discharge Date Admission Date: July 18, 2024 Supervising Physician Co-Signing Physician Notes Attending Addendum: Case reviewed with the advanced practitioner. I have personally performed a history and physical examination on the patient. I have reviewed the advanced practitioner's documentation on the date of service referenced in note, and I agree with, and take responsibility for the plan of care. please refer to her notes for full details patient seen and examined, records reviewed by myself as well diagnoses and plan of care as per advanced practitioner's notes Capo Rizzo MD I spent a total of 30 minutes coordinating, documenting, and providing care for this patient excluding time spent in the performance of separately billed services or time spent by another provider/QHP. Subjective Pt sitting in her bedside chair in no apparent distress. Denies chest pain, dizziness, SOB, neuropathy. Pt was walking with PT and accidentally pulled her TAE drain out. Pt passing flatulance but no BM yet. She has taken Milk of Magnesium and Miralax. Will order Dulcolax Supp to promote BM prior to DC. See POC for further details. Review of Systems Review of Systems: At least ten systems reviewed and negative, except as noted in the subjective section. Physical Exam Physical Exam: Neuro: AAOx4, PERRLA, no aphagia, memory changes, CNII-XII grossly intact HEENT: head normocephalic, moist mucus membranes CV: S1/S2, (-) M/G/R, (-) edema, cap refill < 3 seconds TAE drain x1; minimal wilian red blood output. Resp: Lungs CTA in all pereira. On RA GI: Abdomen S/NT/ND, Ax4 bowel sounds, (-) CVA tenderness Musculoskeletal: 5/5 B/L UE strength, 5/5 B/L LE strength. No gait disturbance Skin: (-) rashes , (-) erythema. vertical lumbar surgical incision dressing C/D/I Psych: euthymic mood Results & Data Results & Data Vital Signs (Past 12 Hours) Vital Signs O2 Del Method 07/20/24 21:00 Room Air Laboratory Results Short CBC 07/21/24 Range/Units 07:48 WBC 15.85 H (4.8-10.8) K/ul Hgb 10.3 L (12.0-16.0) g/dl Hct 29.9 L (37.0-47.0) % Plt Count 210 (130-400) K/uL BMP 07/21/24 07/21/24 07:48 08:45 Sodium 137 Potassium TNP 4.1 Chloride 99 Carbon Dioxide 32 BUN 17 Creatinine 0.55 L Glucose 113 H Calcium 9.3 (4) Hypertension Hypertension type: unspecified Qualified Code(s): I10 - Essential (primary) hypertension
[2024-07-21 08:06] VITALS: RESP 18; TEMP 98.1; O2SAT 97
[2024-07-21 08:23] LABS: Hematocrit (blood only) 29.9 % (37.0-47.0); Hemoglobin 10.3 g/dl (12.0-16.0); Mean Corpuscular Hemoglobin 32.4 pg (25.0-34.0); Mean Corpuscular Hgb Conc 34.4 g/dL (32.0-36.0); Mean Platelet Volume 10.3 fL (9.4-12.4); Platelet Count 210 K/uL (130-400); RDW Standard Deviation 44.7 fL (36.4-46.3); Red Blood Count 3.18 M/uL (4.20-5.40); White Blood Count 15.85 K/ul (4.8-10.8)
[2024-07-21 08:42] LABS: Anion Gap 6 (3-11); BUN Creatinine Ratio 30.9 (10-20); Blood Urea Nitrogen 17 mg/dl (6-23); Calcium 9.3 mg/dl (8.6-10.3); Carbon Dioxide 32 mmol/L (21-32); Chloride 99 mmol/L (98-107); Glucose 113 mg/dl (70-99(Fasting)); Sodium 137 mmol/L (136-145)
[2024-07-21] MEDS: MAGNESIUM HYDROXIDE SUSP 30 ML UDC PO PRN (09:06)
--- NOTE | 2024-07-21 12:30 | Discharge Summary ---
Date of Service July 21, 2024 Admission HPI Per Admitting Provider This is a 73-year-old female who presents for chronic persistent back and leg pain after failing course of nonoperative care is here for surgical invention. Admission Exam (Per Admitting) Constitutional WD/WN, vitals as above Eyes normal visual pereira by confrontation ENMT external ear and nose normal, oropharynx normal Neck normal visual inspection Respiratory normal respiratory effort Cardiovascular Extremities: normal capillary refill Gastrointestinal (Abdomen) Inspection/Auscultation: abdomen normal to inspection Musculoskeletal Spine: + pain with thoraco-lumbar ROM Extremities: extremities normal to inspection and strength 5/5 throughout Skin no rashes, warm and dry Neurologic normal touch/pain/proprioception and moves all extremities Psychiatric A+Ox3, euthymic affect Eye Contact: good eye contact Discharge Data Consultations 07/18/24 16:37 Consult Hospitalist Routine Procedures Performed Operation Date: 07/18/24 12:15 Actual Procedures p L4-S1 Decompression and Fusion, Spinal Cord Monitoring(Not Applicable) - Vincenzo Luna DO Hospital Course (1) Lumbosacral spondylosis with radiculopathy: Patient is being discharged home on postoperative day 3 status post L4-S1 decompression and fusion. She had an uneventful hospital course. Pain is controlled. She is making progress daily and physical therapy. She is passing flatus. Discharge Instructions ACTIVITY RECOMMENDATIONS: SELF CARE INSTRUCTIONS AFTER THORACIC/LUMBAR FUSIONS 1. You may walk to your tolerance. It is good exercise for your legs and back. Expect some back and intermittent leg aches and pains. 2. You may perform "counter-top" level activities (make a sandwich, doroteo with a project, etc.). 3. No bending or lifting of more than 10 pounds or back twisting of any nature (roll like a log when turning in bed). 4. You may ride in a car for 20-30 minutes at a time. No driving until after your first visit with your doctor. 5. Frequent changes of position and restricting sitting to 30 minutes at a time will help limit the amount of back spasms and stiffness you may experience. 6. You may discontinue the use of ambulatory aids (cane, crutches, etc.) once your strength and confidence allow. 7. You may corporate accounting manager the shower and let water strike your incision when you arrive home at least once daily. Do not take a tub bath, sit in a hot tub or go into a swimming pool until after your first recheck in the office. 8. You may resume previous diet. SPECIAL CARE INSTRUCTIONS: VERY IMPORTANT TO READ AND REVIEW A. Your surgical incision has been closed with a cosmetic suture under the skin that will dissolve in about 6 weeks. In 14 days, you can use a pair of clean scissors and cut the suture that is left outside of the skin at the ends of your incision. 1. The small skin tapes can be removed 7 days after surgery if they have not fallen off by that point. 2. You may keep the wound open to air as much as possible to promote healing after post-op day number 5 unless told otherwise by your doctor. 3. If you think the wound looks like it is becoming infected (redness or worsening drainage) and/or you are experiencing fever, chill or worsening back pain and muscle spasms, contact the office so that we may evaluate you as soon as possible. B. Complications are uncommon, but please contact us if you have any signs or symptoms of: 1. wound infection (fever higher than 102.5 degrees F, redness, separation of wound, drainage, or increasing pain from the incision) 2. blood clots in legs (pain, swelling, redness and warmth in legs) 3. urinary tract infection (fever higher than 102.5 degrees F, burning upon urination or increased frequency of urination) 4. nerve problems (inability to walk on your toes or heels, numbness, loss of bowel or bladder control) 5. any other symptoms that concern you C. Please call the office at if you have any concerns or questions about your operation or recovery. D. No smoking! Smoking drastically decreases the chance of a solid fusion. E. Do not take any anti-inflammatory medications (Indocin, Advil, Motrin, Aspirin, Naprosyn, etc.) as these may inhibit the chance of a solid fusion. Tylenol is okay to take for pain. MANAGING PAIN AFTER SPINAL SURGERY 1. Narcotic medication is intended for short-term use and will be provided for surgical pain. Surgical pain usually lasts for a period of 4-6 weeks. Narcotic medication includes Percocet, Vicodin, Darvocet, Tylenol #3 or Lortab. 2. Longer-term pain is more appropriately treated with non-narcotic medication such as Tylenol ES. 3. Muscle spasm is not appropriately treated with narcotics. Muscle relaxers such as Soma, Flexeril or Skelaxin can be used along with Tylenol ES. 4. Remember that we all live with some "aches and pains". This is not unusual or uncommon after an injury or as we get older. a. Back pain is expected and may include muscle spasms for 4 to 6 weeks after surgery. The pain should gradually improve. If the pain worsens for no apparent reason, please contact the office. b. Intermittent leg pain may also be experienced and should not be concerned about unless it worsens for no apparent reason. If so, please contact the office. 5. We will provide appropriate medication within the normal guidelines of their prescribed use. We will also be very cautious and aware of potential abuse and extended duration of patients' medication needs. a. Pain medications are for your comfort and to assist with sleep and rest so that the tissue can heal. They are not provided in order to return to normal activity and should not be used through the day. To do so or worsening pain at night can result from ongoing tissue damage and development of tolerance to the prescribed medicine. 6. Please allow 2-3 days to process refills. Prescriptions will not be mailed but must be picked up at the office. FOLLOW UP VISIT: Keep your scheduled follow-up appointment. Any questions, please call the office at .
[2024-07-21] MEDS: bisacodyL 10 MG SUPP PR STA (13:00)
[2024-07-21 14:30] VITALS: BP 111/61; PULSE 63
== END 2024-07-21 16:15 | disposition home or self-care (01) | DRG 427 ==
LOC: ASU 10:37 → 3W 15:07